=== PATIENT | male | born 1945 | race Caucasian/White ===

== ENCOUNTER 2020-06-08 07:09 | Inpatient (IN) ==
[2020-06-08] MEDS ORDERED: GLUCAGON 1 MG VIAL IM PRN ×2 (09:25)
[2020-06-08] MEDS ORDERED: DEXTROSE 50% 25 GM/50 ML VIAL IV PRN ×2 (09:25)
[2020-06-08 13:16] LABS: Basophils # 0.1 10*3/uL (0.0-0.2); Basophils % 0.5 % (0.0-0.8); Eosinophils # 0.5 10*3/uL (0.0-0.87); Eosinophils % 3.4 % (0.00-10.9); Hematocrit 26.6 VOL% (42.0-52.0); Immature Granulocytes % 1.2 %; Immature Granulocytes Absolute 0.18 #; Lymphocytes # 1.9 10*3/uL (1.4-4.0); Lymphocytes % 12.7 % (21.2-54.2); Mean Corpuscular HGB Conc 33.8 GM/DL (32-36); Mean Corpuscular Volume 87.5 FL (87-102); Mean Platelet Volume 10.5 FL (9.6-12.0); Monocytes % 8.7 % (1.7-12.7); NRBC # 0.05 10*3/uL; Neutrophils % 73.5 % (38.7-73.9); Platelet Count 216 T/CUMM (130-400); Red Blood Count 3.04 MC/CUMM (3.8-5.5); White Blood Count 14.6 T/CUMM (4-12)
[2020-06-08] MEDS ORDERED: SODIUM CHLORIDE 0.9% 1,000 ML IV PRN (13:24)
[2020-06-08 13:51] LABS: Albumin 2.3 G/DL (3.4-5.0); Bilirubin,Total 0.8 MG/DL (0.2-1.0); Calcium 7.6 MG/DL (8.5-10.1); Osmolality,Calculated 278.7 MOS/KG (273-304); Potassium 3.7 MMOL/L (3.5-5.1); Total Protein 4.9 G/DL (6.4-8.3)
[2020-06-08] MEDS: INSULIN REGULAR 100 UNIT/ML SUBCUT SCH ×3 (16:09→20:04)
[2020-06-08] MEDS: SODIUM CHLORIDE 0.9% 1,000 ML IV SCH (16:09)
[2020-06-08] MEDS: CHLORHEXIDINE 4% SOLN 118 ML BOTTLE TOP SCH ×2 (19:00→23:32)
[2020-06-08 20:29] LABS: Basophils # 0.1 10*3/uL (0.0-0.2); Basophils % 0.6 % (0.0-0.8); Eosinophils # 0.7 10*3/uL (0.0-0.87); Eosinophils % 5.2 % (0.00-10.9); Hematocrit 28.5 VOL% (42.0-52.0); Hemoglobin 9.5 GM/DL (14.0-18.0); Immature Granulocytes % 1.4 %; Lymphocytes # 2.1 10*3/uL (1.4-4.0); Lymphocytes % 14.9 % (21.2-54.2); Mean Corpuscular HGB Conc 33.3 GM/DL (32-36); Mean Corpuscular Volume 88.8 FL (87-102); Mean Platelet Volume 10.3 FL (9.6-12.0); Monocytes % 8.4 % (1.7-12.7); NRBC # 0.07 10*3/uL; Neutrophils % 69.5 % (38.7-73.9); Platelet Count 204 T/CUMM (130-400); Red Blood Count 3.21 MC/CUMM (3.8-5.5); Red Cell Distribution Width 14.8 % (9.3-17.3); White Blood Count 13.9 T/CUMM (4-12)
[2020-06-08] MEDS: CHLORHEXIDINE 0.12% ORAL RINSE 60 ML BOTTLE SWISH/SPIT SCH (20:43)
[2020-06-08] MEDS: CLORAZEPATE 7.5 MG TABLET PO SCH (20:43)
[2020-06-09] MEDS: CLORAZEPATE 7.5 MG TABLET PO SCH (01:12)
[2020-06-09] MEDS: CHLORHEXIDINE 4% SOLN 118 ML BOTTLE TOP SCH ×3 (03:38→09:19)
[2020-06-09 03:59] LABS: ABG Base Excess -2.2 MMOL/L (-2.5-2.5); ABG HCO3 22.5 MMOL/L (20-26); ABG Oxygen Saturation 98.6 % (95-100); ABG PCO2 33.8 MM HG (35-48); ABG PH 7.416 (7.35-7.45); ABG TCO2 19.7 MMOL/L (23-27); Allen Test Positive; Pt O2 Delivery Device Room Air
[2020-06-09] MEDS ORDERED: VANCOMYCIN 1,000 MG VIAL ONE (04:22)
[2020-06-09] MEDS ORDERED: PAPAVERINE 60 MG/2 ML VIAL ONE (04:22)
[2020-06-09] MEDS ORDERED: VANCOMYCIN 500 MG VIAL ONE (04:22)
[2020-06-09 04:25] LABS: Basophils # 0.1 10*3/uL (0.0-0.2); Basophils % 0.5 % (0.0-0.8); Eosinophils # 0.8 10*3/uL (0.0-0.87); Eosinophils % 5.8 % (0.00-10.9); Hematocrit 29.2 VOL% (42.0-52.0); Hemoglobin 9.9 GM/DL (14.0-18.0); Immature Granulocytes % 1.2 %; Immature Granulocytes Absolute 0.17 #; Lymphocytes # 2.1 10*3/uL (1.4-4.0); Lymphocytes % 14.7 % (21.2-54.2); Mean Corpuscular HGB Conc 33.9 GM/DL (32-36); Mean Corpuscular Volume 87.2 FL (87-102); Mean Platelet Volume 10.4 FL (9.6-12.0); Monocytes % 8.7 % (1.7-12.7); NRBC # 0.05 10*3/uL; Neutrophils % 69.1 % (38.7-73.9); Platelet Count 219 T/CUMM (130-400); Red Blood Count 3.35 MC/CUMM (3.8-5.5); Red Cell Distribution Width 14.7 % (9.3-17.3); White Blood Count 14.4 T/CUMM (4-12)
[2020-06-09 04:56] LABS: INR 1.1; PT Patient Result 11.4 SECS (9.8-11.9); Partial Thromboplastin Time 27.5 SECS (23.9-33.8)
[2020-06-09] MEDS ORDERED: CEFUROXIME INJ 1,500 MG in SYRINGE 1 EACH IV ONE (05:00)
[2020-06-09 05:12] LABS: Albumin 2.2 G/DL (3.4-5.0); Bilirubin,Total 0.7 MG/DL (0.2-1.0); Calcium 7.6 MG/DL (8.5-10.1); Osmolality,Calculated 274.7 MOS/KG (273-304); Potassium 3.8 MMOL/L (3.5-5.1); Total Protein 4.9 G/DL (6.4-8.3)
[2020-06-09] MEDS ORDERED: LORazepam 1 MG TABLET PO ONE (05:55)
[2020-06-09] MEDS ORDERED: MIDAZOLAM 10 MG/2 ML VIAL ONE ×3 (05:59→08:55)
[2020-06-09] MEDS ORDERED: SUFentanil 250 MCG/5 ML AMP ONE ×2 (06:00)
[2020-06-09] MEDS ORDERED: ETOMIDATE 40 MG/20 ML VIAL IV ONE (06:11)
[2020-06-09] MEDS ORDERED: CALCIUM CHLORIDE 1,000 MG/10 ML VIAL IV ONE ×2 (06:11→06:12)
[2020-06-09] MEDS ORDERED: VECURONIUM 10 MG VIAL IV ONE ×2 (06:12→08:55)
[2020-06-09] MEDS ORDERED: MINERAL OIL/PETROLATUM OPH OINT 3.5 GM TUBE ONE (06:12)
[2020-06-09] MEDS ORDERED: LIDOCAINE 2% 5 ML VIAL ONE ×2 (06:12→10:08)
[2020-06-09] MEDS ORDERED: LACTATED RINGERS 1,000 ML IV ONE (06:15)
[2020-06-09] MEDS ORDERED: SODIUM CHLORIDE 0.9% 1,000 ML IV ONE (06:15)
[2020-06-09] MEDS ORDERED: SODIUM CHLORIDE 0.9% 250 ML IV ONE (06:15)
[2020-06-09] MEDS ORDERED: PHENYLEPHRINE DRIP 20 MG/250 ML PREMIX IV ONE (06:15)
[2020-06-09] MEDS ORDERED: HEPARIN/NACL 0.9% 2 UNITS/ML 500 ML IV ONE (06:15)
[2020-06-09] MEDS ORDERED: SODIUM CHLORIDE 0.9% 100 ML IV ONE ×3 (06:15→10:18)
[2020-06-09] MEDS ORDERED: PANTOPRAZOLE 40 MG TABLET PO ONE (06:30)
[2020-06-09] MEDS ORDERED: DIAZEPAM 5 MG TABLET PO ONE (06:30)
[2020-06-09 07:35] LABS: ABG Base Excess -3.6 MMOL/L (-2.5-2.5); ABG HCO3 20.5 MMOL/L (20-26); ABG Oxygen Saturation 98.8 % (95-100); ABG PCO2 33.5 MM HG (35-48); ABG PH 7.405 (7.35-7.45); ABG PO2 421.6 MM HG (80-95); ABG TCO2 21.5 MMOL/L (23-27); Glucose Heart Surgery 90 MG/DL (74-106); Hemoglobin Heart Surgery 9.3 G/DL (14.0-18.0); Ionized Calcium Arterial 1.07 MMOL/L (1.21-1.46); PCO2 Patient Temp Arterial 33.5 MMHG; PH Patient Temp Arterial 7.405; PO2 Patient Temp Arterial 421.6 MM HG; Patient Temperature 37 CELCIUS; Potassium Heart/CVR 3.4 MMOL/L (3.5-5.1); Sodium Heart/CVR 132 MMOL/L (135-145)
[2020-06-09] MEDS ORDERED: SODIUM BICARBONATE 50 MEQ/50 ML VIAL IV ONE ×2 (07:56→10:09)
[2020-06-09] MEDS ORDERED: NITROPRUSSIDE 50 MG/2 ML VIAL ONE (07:56)
[2020-06-09] MEDS ORDERED: POTASSIUM CHLORIDE RIDER 100 ML IV ONE (07:56)
[2020-06-09] MEDS ORDERED: PHENYLEPHRINE DRIP 40 MG/250 ML PREMIX IV ONE (07:57)
[2020-06-09] MEDS ORDERED: CALCIUM CHLORIDE 1,000 MG/10 ML SYRINGE IV ONE (07:57)
[2020-06-09 08:02] LABS: Bacteria,Urine Occasional /HPF (Few); Bilirubin,Urine Negative (Negative); Blood, Urine Small mg/dL (Negative); Glucose,Urine (UA) Negative (Negative); Ketones,Urine 20 mg/dL (Negative); Mucus,Urine Occasional /LPF (Occasional); Nitrite,Urine Negative (Negative); Protein,Urine Negative; RBC,Urine 3 /HPF (0-4); Urine Appearance CLEAR (Clear); Urine Color Yellow (Yellow); Urine Urobilinogen < 2.0 EU/DL (0.2-1.0); WBC,Urine 1 /HPF (0-6)
[2020-06-09 09:03] LABS: Hematocrit Heart Surgery 24.8 PERCENT (42-52); Hemoglobin Heart Surgery 7.9 G/DL (14.0-18.0); PCO2 Patient Temp Venous 33.4 MM HG; PH Patient Temp Venous 7.405; PO2 Patient Temp Venous 37.9 MM HG; Potassium Heart/CVR 4.6 MMOL/L (3.5-5.1); VBG Base Excess -3.1 MEQ/L (0-4); VBG HCO3 21.6 MEQ/L (24-28); VBG Oxygen Saturation 83.3 %; VBG PCO2 38.7 MMHG (41-51); VBG PH 7.362; VBG PO2 46.6 MMHG (17-40); VBG Total CO2 20.6 MMOL/L
[2020-06-09] MEDS ORDERED: PHENYLEPHRINE 1 MG/10 ML SYRINGE IV ONE (09:08)
[2020-06-09] MEDS: CHLORHEXIDINE 0.12% ORAL RINSE 60 ML BOTTLE SWISH/SPIT SCH ×2 (09:19→20:26)
[2020-06-09] MEDS: INSULIN REGULAR 100 UNIT/ML SUBCUT SCH (09:19)
[2020-06-09] MEDS: SODIUM CHLORIDE 0.9% 1,000 ML IV SCH (09:21)
[2020-06-09 09:36] LABS: PCO2 Patient Temp Venous 27.9 MM HG; PH Patient Temp Venous 7.498; PO2 Patient Temp Venous 39.4 MM HG; Potassium Heart/CVR 3.9 MMOL/L (3.5-5.1); VBG Base Excess -1.7 MEQ/L (0-4); VBG HCO3 21.8 MEQ/L (24-28); VBG Oxygen Saturation 85.7 %; VBG PCO2 31.8 MMHG (41-51); VBG PH 7.453; VBG PO2 48.7 MMHG (17-40); VBG Total CO2 22.7 MMOL/L
[2020-06-09] MEDS ORDERED: DEXTROSE 5% KCL 20 MEQ 20 MEQ/1,000 ML BAG IV ONE (10:08)
[2020-06-09] MEDS ORDERED: methylPREDNISolone SOD SUC 1,000 MG/8 ML VIAL ONE (10:08)
[2020-06-09] MEDS ORDERED: MAGNESIUM SULFATE 5 GM/10 ML VIAL IV ONE (10:08)
[2020-06-09] MEDS ORDERED: ALBUMIN 25% 25 GM/100 ML VIAL IV ONE (10:08)
[2020-06-09] MEDS ORDERED: MANNITOL 100 GM/500 ML BAG IV ONE (10:09)
[2020-06-09] MEDS ORDERED: PROTAMINE SULFATE 50 MG/5 ML VIAL IV ONE (10:09)
[2020-06-09] MEDS ORDERED: FUROSEMIDE 20 MG/2 ML VIAL ONE (10:09)
[2020-06-09] MEDS ORDERED: HEPARIN 10,000 UNIT/10 ML VIAL ONE (10:09)
[2020-06-09] MEDS ORDERED: PROTAMINE SULFATE 250 MG/25 ML VIAL IV ONE (10:09)
[2020-06-09 10:31] LABS: ABG Base Excess -2.7 MMOL/L (-2.5-2.5); ABG HCO3 21.8 MMOL/L (20-26); ABG Oxygen Saturation 98.4 % (95-100); ABG PCO2 36.1 MM HG (35-48); ABG PH 7.398 (7.35-7.45); ABG PO2 311.3 MM HG (80-95); ABG TCO2 22.9 MMOL/L (23-27); Glucose Heart Surgery 198 MG/DL (74-106); Hemoglobin Heart Surgery 9.8 G/DL (14.0-18.0); Ionized Calcium Arterial 1.11 MMOL/L (1.21-1.46); PCO2 Patient Temp Arterial 36.1 MMHG; PH Patient Temp Arterial 7.398; PO2 Patient Temp Arterial 311.3 MM HG; Patient Temperature 37 CELCIUS; Potassium Heart/CVR 3.6 MMOL/L (3.5-5.1); Sodium Heart/CVR 132 MMOL/L (135-145)
[2020-06-09] MEDS ORDERED: INSULIN REGULAR 100 UNIT/ML IV ONE (10:48)
[2020-06-09] MEDS ORDERED: INSULIN REGULAR 100 UNIT/ML IV PRN (10:48)
[2020-06-09] MEDS ORDERED: VECURONIUM 10 MG VIAL IV PRN ×2 (10:48)
[2020-06-09] MEDS ORDERED: MIDAZOLAM 10 MG/2 ML VIAL IV PRN (10:48)
[2020-06-09] MEDS ORDERED: MAGNESIUM SULF RIDER 4 GM in PREMIX 1 EACH IV PRN (10:48)
[2020-06-09] MEDS ORDERED: LACTATED RINGERS 250 ML IV PRN (10:48)
[2020-06-09] MEDS ORDERED: MAGNESIUM SULF RIDER 2 GM in PREMIX 1 EACH IV PRN (10:48)
[2020-06-09] MEDS ORDERED: ONDANSETRON 4 MG/2 ML VIAL IV PRN (10:48)
[2020-06-09] MEDS ORDERED: MORPHINE 10 MG/1 ML VIAL IV PRN (10:48)
[2020-06-09] MEDS ORDERED: MIDAZOLAM 2 MG/2 ML VIAL IV PRN (10:48)
[2020-06-09] MEDS ORDERED: ACETAMINOPHEN 650 MG SUPP RECTAL PRN (10:48)
[2020-06-09] MEDS ORDERED: DEXTROSE 50% 25 GM/50 ML VIAL IV PRN ×2 (10:48)
[2020-06-09] MEDS ORDERED: CHLORHEXIDINE 4% SOLN 118 ML BOTTLE TOP PRN (10:48)
[2020-06-09] MEDS ORDERED: CALCIUM CHLORIDE 1,000 MG/10 ML SYRINGE IV PRN (10:48)
[2020-06-09] MEDS ORDERED: NITROPRUSSIDE 100 MG in DEXTROSE 5% 250 ML IV PRN (10:48)
[2020-06-09] MEDS ORDERED: MORPHINE 4 MG/1 ML VIAL IV PRN (10:48)
[2020-06-09] MEDS ORDERED: INSULIN REGULAR DRIP 100 ML IV SCH (11:00)
[2020-06-09] MEDS ORDERED: SEVOFLURANE 1 UNIT/15 MINUTE INH ONE (11:03)
[2020-06-09] MEDS ORDERED: GLYCOPYRROLATE 0.4 MG/2 ML VIAL ONE (11:03)
[2020-06-09 11:12] LABS: ABG Base Excess -0.8 MMOL/L (-2.5-2.5); ABG HCO3 23.7 MMOL/L (20-26); ABG Oxygen Saturation 99.2 % (95-100); ABG PCO2 36.8 MM HG (35-48); ABG PH 7.412 (7.35-7.45); ABG TCO2 21.2 MMOL/L (23-27); Glucose Heart Surgery 208 MG/DL (74-106); Hematocrit Heart Surgery 31.3 PERCENT (42-52); Hemoglobin Heart Surgery 10.1 G/DL (14.0-18.0); Potassium Heart/CVR 3.5 MMOL/L (3.5-5.1)
[2020-06-09 11:22] LABS: Basophils # 0.1 10*3/uL (0.0-0.2); Basophils % 0.4 % (0.0-0.8); Eosinophils # 0.4 10*3/uL (0.0-0.87); Eosinophils % 2.7 % (0.00-10.9); Hematocrit 28.9 VOL% (42.0-52.0); Hemoglobin 9.7 GM/DL (14.0-18.0); Immature Granulocytes % 1.7 %; Immature Granulocytes Absolute 0.26 #; Lymphocytes # 0.8 10*3/uL (1.4-4.0); Lymphocytes % 5.2 % (21.2-54.2); Mean Corpuscular HGB Conc 33.6 GM/DL (32-36); Mean Platelet Volume 10.3 FL (9.6-12.0); Monocytes % 4.4 % (1.7-12.7); NRBC # 0.08 10*3/uL; Neutrophils % 85.6 % (38.7-73.9); Platelet Count 233 T/CUMM (130-400); Red Blood Count 3.32 MC/CUMM (3.8-5.5); Red Cell Distribution Width 15.2 % (9.3-17.3)
[2020-06-09 11:29] LABS: INR 1.2; PT Patient Result 12.5 SECS (9.8-11.9); Partial Thromboplastin Time 26.8 SECS (23.9-33.8)
[2020-06-09] MEDS: SODIUM CHLORIDE 0.45% 1,000 ML IV SCH ×2 (11:38)
[2020-06-09] MEDS: POTASSIUM CHLORIDE RIDER 20 MEQ in PREMIX 1 EACH IV PRN ×4 (11:38→23:21)
[2020-06-09] MEDS: PHENYLEPHRINE DRIP 40 MG/250 ML PREMIX IV PRN (11:39)
[2020-06-09 11:45] LABS: CKMB % 11.5 %
[2020-06-09 11:48] LABS: Albumin 2.5 G/DL (3.4-5.0); Calcium 8.3 MG/DL (8.5-10.1); Osmolality,Calculated 283.5 MOS/KG (273-304); Potassium 3.5 MMOL/L (3.5-5.1); Total Protein 5.1 G/DL (6.4-8.3)
[2020-06-09 11:52] LABS: Troponin I 16.3 NG/ML (0.00-0.045)
[2020-06-09] MEDS: LACTATED RINGERS 1,000 ML IV PRN ×3 (12:00→13:50)
[2020-06-09] MEDS: POTASSIUM CHLORIDE RIDER 10 MEQ in PREMIX 1 EACH IV PRN ×3 (12:30→23:57)
[2020-06-09 13:07] LABS: ABG Base Excess 1.1 MMOL/L (-2.5-2.5); ABG HCO3 25.4 MMOL/L (20-26); ABG Oxygen Saturation 99.9 % (95-100); ABG PCO2 35.4 MM HG (35-48); ABG PH 7.452 (7.35-7.45); ABG TCO2 22.4 MMOL/L (23-27); Glucose Heart Surgery 155 MG/DL (74-106); Hematocrit Heart Surgery 31.2 PERCENT (42-52); Hemoglobin Heart Surgery 10.1 G/DL (14.0-18.0); Potassium Heart/CVR 3.6 MMOL/L (3.5-5.1)
[2020-06-09] MEDS: ALBUMIN 5% 12.5 GM in PREMIX 1 EACH IV PRN ×2 (13:25→14:34)
[2020-06-09 14:31] LABS: ABG Base Excess 1.3 MMOL/L (-2.5-2.5); ABG HCO3 25.6 MMOL/L (20-26); ABG Oxygen Saturation 99.4 % (95-100); ABG PH 7.459 (7.35-7.45); ABG TCO2 22.5 MMOL/L (23-27); Glucose Heart Surgery 126 MG/DL (74-106); Hematocrit Heart Surgery 30.3 PERCENT (42-52); Hemoglobin Heart Surgery 9.8 G/DL (14.0-18.0)
[2020-06-09 15:52] LABS: ABG Base Excess 0.6 MMOL/L (-2.5-2.5); ABG Oxygen Saturation 99.3 % (95-100); ABG PCO2 43.7 MM HG (35-48); ABG PH 7.381 (7.35-7.45); ABG TCO2 23.6 MMOL/L (23-27); Glucose Heart Surgery 114 MG/DL (74-106); Hematocrit Heart Surgery 31.3 PERCENT (42-52); Hemoglobin Heart Surgery 10.1 G/DL (14.0-18.0); Potassium Heart/CVR 4.2 MMOL/L (3.5-5.1)
[2020-06-09] MEDS: CEFUROXIME INJ 1,500 MG in SYRINGE 1 EACH IV SCH (18:09)
[2020-06-09 18:40] LABS: ABG Base Excess -0.1 MMOL/L (-2.5-2.5); ABG HCO3 24.4 MMOL/L (20-26); ABG Oxygen Saturation 99.3 % (95-100); ABG PCO2 45.1 MM HG (35-48); ABG PH 7.361 (7.35-7.45); ABG TCO2 23.3 MMOL/L (23-27); Glucose Heart Surgery 122 MG/DL (74-106); Hematocrit Heart Surgery 30.7 PERCENT (42-52); Hemoglobin Heart Surgery 9.9 G/DL (14.0-18.0); Potassium Heart/CVR 4.4 MMOL/L (3.5-5.1)
[2020-06-09 19:16] LABS: Troponin I 13.1 NG/ML (0.00-0.045)
[2020-06-09] MEDS ORDERED: FUROSEMIDE 40 MG/4 ML VIAL IV PRN (20:27)
[2020-06-09 21:03] LABS: ABG HCO3 23.6 MMOL/L (20-26); ABG Oxygen Saturation 99.7 % (95-100); ABG PCO2 29.5 MM HG (35-48); ABG PH 7.475 (7.35-7.45); ABG TCO2 19.7 MMOL/L (23-27); Glucose Heart Surgery 142 MG/DL (74-106); Hematocrit Heart Surgery 31.1 PERCENT (42-52); Hemoglobin Heart Surgery 10.1 G/DL (14.0-18.0); Potassium Heart/CVR 4.1 MMOL/L (3.5-5.1)
[2020-06-09 22:20] LABS: ABG Base Excess -0.4 MMOL/L (-2.5-2.5); ABG HCO3 24.1 MMOL/L (20-26); ABG Oxygen Saturation 99.6 % (95-100); ABG PCO2 25.2 MM HG (35-48); ABG PH 7.534 (7.35-7.45); ABG TCO2 19.2 MMOL/L (23-27); Glucose Heart Surgery 143 MG/DL (74-106); Hematocrit Heart Surgery 30.8 PERCENT (42-52); Potassium Heart/CVR 4.1 MMOL/L (3.5-5.1)
[2020-06-09 23:11] LABS: ABG Base Excess -1.6 MMOL/L (-2.5-2.5); ABG HCO3 23.1 MMOL/L (20-26); ABG Oxygen Saturation 99.5 % (95-100); ABG PCO2 22.1 MM HG (35-48); ABG PH 7.553 (7.35-7.45); ABG TCO2 17.6 MMOL/L (23-27); Glucose Heart Surgery 145 MG/DL (74-106); Hematocrit Heart Surgery 30.7 PERCENT (42-52); Hemoglobin Heart Surgery 9.9 G/DL (14.0-18.0); Potassium Heart/CVR 3.8 MMOL/L (3.5-5.1)
[2020-06-10 00:54] LABS: ABG Base Excess -1.5 MMOL/L (-2.5-2.5); ABG HCO3 23.2 MMOL/L (20-26); ABG Oxygen Saturation 99.8 % (95-100); ABG PCO2 27.7 MM HG (35-48); ABG PH 7.488 (7.35-7.45); Glucose Heart Surgery 131 MG/DL (74-106); Hematocrit Heart Surgery 30.3 PERCENT (42-52); Hemoglobin Heart Surgery 9.8 G/DL (14.0-18.0); Potassium Heart/CVR 4.4 MMOL/L (3.5-5.1)
[2020-06-10 02:13] LABS: ABG Base Excess -1.9 MMOL/L (-2.5-2.5); ABG HCO3 22.8 MMOL/L (20-26); ABG Oxygen Saturation 99.7 % (95-100); ABG PCO2 33.6 MM HG (35-48); ABG PH 7.422 (7.35-7.45); ABG TCO2 19.7 MMOL/L (23-27); Glucose Heart Surgery 127 MG/DL (74-106); Hematocrit Heart Surgery 33.2 PERCENT (42-52); Hemoglobin Heart Surgery 10.7 G/DL (14.0-18.0); Potassium Heart/CVR 4.3 MMOL/L (3.5-5.1)
[2020-06-10] MEDS: POTASSIUM CHLORIDE RIDER 20 MEQ in PREMIX 1 EACH IV PRN (02:29)
[2020-06-10 03:37] LABS: ABG Base Excess -1.8 MMOL/L (-2.5-2.5); ABG HCO3 22.9 MMOL/L (20-26); ABG Oxygen Saturation 98.8 % (95-100); ABG PCO2 35.8 MM HG (35-48); ABG PH 7.405 (7.35-7.45); ABG TCO2 20.3 MMOL/L (23-27); Glucose Heart Surgery 126 MG/DL (74-106); Hematocrit Heart Surgery 32.8 PERCENT (42-52); Hemoglobin Heart Surgery 10.6 G/DL (14.0-18.0); Potassium Heart/CVR 4.3 MMOL/L (3.5-5.1)
[2020-06-10 03:39] LABS: Basophils % 0.1 % (0.0-0.8); Hemoglobin 10.4 GM/DL (14.0-18.0); Immature Granulocytes % 0.7 %; Immature Granulocytes Absolute 0.14 #; Lymphocytes # 0.7 10*3/uL (1.4-4.0); Lymphocytes % 3.2 % (21.2-54.2); Mean Corpuscular HGB Conc 33.5 GM/DL (32-36); Mean Corpuscular Volume 87.8 FL (87-102); Mean Platelet Volume 10.5 FL (9.6-12.0); Monocytes % 4.3 % (1.7-12.7); NRBC # 0.03 10*3/uL; Neutrophils % 91.7 % (38.7-73.9); Platelet Count 336 T/CUMM (130-400); Red Blood Count 3.53 MC/CUMM (3.8-5.5); Red Cell Distribution Width 16.3 % (9.3-17.3); White Blood Count 20.3 T/CUMM (4-12)
[2020-06-10 04:04] LABS: Bilirubin,Direct 0.19 MG/DL (0.0-0.20); Bilirubin,Total 0.6 MG/DL (0.2-1.0); CKMB % 7.7 %; Calcium 8.1 MG/DL (8.5-10.1); Osmolality,Calculated 285.1 MOS/KG (273-304); Potassium 4.5 MMOL/L (3.5-5.1); Total Protein 5.3 G/DL (6.4-8.3)
[2020-06-10 04:09] LABS: Troponin I 9.82 NG/ML (0.00-0.045)
[2020-06-10] MEDS: POTASSIUM CHLORIDE RIDER 10 MEQ in PREMIX 1 EACH IV PRN (04:28)
[2020-06-10] MEDS: CEFUROXIME INJ 1,500 MG in SYRINGE 1 EACH IV SCH ×2 (06:20→18:00)
[2020-06-10 08:21] LABS: Anisocytosis 1+; Band Neutrophils 15 % (0-10); Lymphocytes 3 % (20-55); Platelet Estimate Normal; Segmented Neutrophils 73 % (50-85); Total Cells Counted 100
[2020-06-10 08:22] LABS: Polychromasia Slight
[2020-06-10] MEDS ORDERED: AMIODARONE INJ 150 MG in DEXTROSE 5% 100 ML IV ONE (08:56)
[2020-06-10] MEDS ORDERED: AMIODARONE 150 MG/3 ML VIAL ONE (08:58)
[2020-06-10] MEDS ORDERED: AMIODARONE INJ 450 MG in DEXTROSE 5% 241 ML IV SCH ×2 (09:00→15:00)
[2020-06-10] MEDS ORDERED: AMIODARONE 450 MG/9 ML VIAL IV ONE (09:03)
[2020-06-10] MEDS: CHLORHEXIDINE 0.12% ORAL RINSE 60 ML BOTTLE SWISH/SPIT SCH ×2 (09:23→21:23)
[2020-06-10] MEDS ORDERED: TRIAMCINOLONE 0.1% CREAM 15 GM TUBE TOP SCH (09:30)
[2020-06-10] MEDS: KETOROLAC 30 MG/1 ML VIAL IV SCH ×3 (09:33→20:53)
[2020-06-10] MEDS: metroNIDAZOLE 500 MG/100 ML PREMIX IV SCH ×2 (09:50→21:04)
[2020-06-10] MEDS: PHENYLEPHRINE DRIP 40 MG/250 ML PREMIX IV PRN (10:08)
[2020-06-10] MEDS: ALBUMIN 5% 12.5 GM in PREMIX 1 EACH IV PRN ×2 (10:13→10:48)
[2020-06-10] MEDS: SODIUM CHLORIDE 0.45% 1,000 ML IV SCH ×2 (11:19→11:39)
[2020-06-10] MEDS ORDERED: INSULIN LISPRO 100 UNIT/ML SUBCUT SCH (11:30)
[2020-06-10] MEDS: INSULIN REGULAR 100 UNIT/ML SUBCUT SCH ×3 (11:52→20:53)
[2020-06-10 12:36] LABS: CKMB % 6.4 %
[2020-06-10 12:41] LABS: Troponin I 6.97 NG/ML (0.00-0.045)
[2020-06-10] MEDS: METOPROLOL TARTRATE 25 MG TABLET PO SCH (20:01)
[2020-06-10] MEDS: ATORVASTATIN 80 MG TABLET PO SCH (20:52)
[2020-06-10] MEDS: metFORMIN 500 MG TABLET PO SCH (20:52)
[2020-06-11] MEDS: KETOROLAC 30 MG/1 ML VIAL IV SCH ×4 (02:04→21:11)
[2020-06-11] MEDS: PHENYLEPHRINE DRIP 40 MG/250 ML PREMIX IV PRN ×3 (02:08→22:38)
[2020-06-11 04:08] LABS: Basophils % 0.1 % (0.0-0.8); Hematocrit 25.3 VOL% (42.0-52.0); Hemoglobin 8.2 GM/DL (14.0-18.0); Immature Granulocytes % 0.9 %; Immature Granulocytes Absolute 0.23 #; Lymphocytes % 4.1 % (21.2-54.2); Mean Corpuscular HGB Conc 32.4 GM/DL (32-36); Mean Corpuscular Volume 91.7 FL (87-102); Mean Platelet Volume 10.4 FL (9.6-12.0); Monocytes % 7.4 % (1.7-12.7); NRBC # 0.05 10*3/uL; Neutrophils % 87.5 % (38.7-73.9); Platelet Count 352 T/CUMM (130-400); Red Blood Count 2.76 MC/CUMM (3.8-5.5); White Blood Count 24.4 T/CUMM (4-12)
[2020-06-11 04:39] LABS: Alanine Aminotransferase 21 U/L (16-61); Albumin 2.4 G/DL (3.4-5.0); Alkaline Phosphatase 51 U/L (45-117); Aspartate Amino Transferase 15 U/L (0-37); Bilirubin,Total < 0.39 MG/DL (0.2-1.0); Blood Urea Nitrogen 39 MG/DL (7-18); Calcium 7.3 MG/DL (8.5-10.1); Carbon Dioxide 26 MMOL/L (21-32); Estimated Glom Filtration Rate 100 ML/MIN; Glucose 123 MG/DL (74-106); Osmolality,Calculated 292.1 MOS/KG (273-304); Potassium 4.2 MMOL/L (3.5-5.1); Sodium 142 MMOL/L (136-145); Total Protein 4.8 G/DL (6.4-8.3)
[2020-06-11] MEDS: POTASSIUM CHLORIDE RIDER 20 MEQ in PREMIX 1 EACH IV PRN (05:40)
[2020-06-11] MEDS: ALBUMIN 5% 12.5 GM in PREMIX 1 EACH IV PRN ×2 (05:41→06:07)
[2020-06-11 07:35] LABS: Lymphocytes 2 % (20-55); Segmented Neutrophils 93 % (50-85); Total Cells Counted 100
[2020-06-11 07:36] LABS: Anisocytosis 1+; Microcytosis 1+; Platelet Estimate Increased; Polychromasia Few
[2020-06-11] MEDS ORDERED: MAGNESIUM SULF RIDER 4 GM in PREMIX 1 EACH IV PRN (08:30)
[2020-06-11] MEDS ORDERED: DEXTROSE 50% 25 GM/50 ML VIAL IV PRN ×2 (08:30)
[2020-06-11] MEDS ORDERED: ALUMINUM/MAGNES/SIMETH MAX STR 30 ML UDCUP PO PRN (08:30)
[2020-06-11] MEDS ORDERED: MAGNESIUM SULF RIDER 2 GM in PREMIX 1 EACH IV PRN (08:30)
[2020-06-11] MEDS ORDERED: ACETAMINOPHEN 325 MG TABLET PO PRN (08:30)
[2020-06-11] MEDS ORDERED: MAGNESIUM HYDROXIDE SUSP 30 ML UDCUP PO PRN (08:30)
[2020-06-11] MEDS ORDERED: FUROSEMIDE 40 MG/4 ML VIAL IV ONE (08:30)
[2020-06-11] MEDS ORDERED: GLUCAGON 1 MG VIAL IM PRN ×2 (08:30)
[2020-06-11] MEDS ORDERED: ONDANSETRON 4 MG/2 ML VIAL IV PRN (08:30)
[2020-06-11] MEDS: INSULIN REGULAR 100 UNIT/ML SUBCUT SCH ×4 (08:49→21:41)
[2020-06-11] MEDS ORDERED: ALBUMIN 5% 25 GM in PREMIX 1 EACH IV ONE (08:53)
[2020-06-11] MEDS: CHLORHEXIDINE 0.12% ORAL RINSE 60 ML BOTTLE SWISH/SPIT SCH ×2 (09:25→21:31)
[2020-06-11] MEDS: FERROUS SULFATE 325 MG TABLET PO SCH (09:26)
[2020-06-11] MEDS: ASPIRIN EC 81 MG TABLET PO SCH (09:26)
[2020-06-11] MEDS: PANTOPRAZOLE 40 MG TABLET PO SCH (09:26)
[2020-06-11] MEDS: metroNIDAZOLE 500 MG/100 ML PREMIX IV SCH ×2 (09:26→21:42)
[2020-06-11] MEDS: METOPROLOL TARTRATE 25 MG TABLET PO SCH ×3 (09:26→21:43)
[2020-06-11] MEDS: DOCUSATE SODIUM 100 MG CAPSULE PO SCH (09:26)
[2020-06-11] MEDS: SODIUM CHLOR 0.45% KCL 20 MEQ 20 MEQ/1,000 ML BAG IV SCH (09:27)
[2020-06-11] MEDS: metFORMIN 500 MG TABLET PO SCH ×2 (09:27→21:43)
[2020-06-11] MEDS: ZALEPLON 5 MG CAPSULE PO PRN ×2 (21:26→22:51)
[2020-06-11] MEDS: ATORVASTATIN 80 MG TABLET PO SCH (21:27)
[2020-06-11] MEDS: oxyCODONE/ACETAMINOPHEN 5-325 MG TABLET PO PRN (22:55)
[2020-06-12] MEDS: MORPHINE 4 MG/1 ML VIAL IV PRN (02:52)
[2020-06-12] MEDS: PHENYLEPHRINE DRIP 40 MG/250 ML PREMIX IV PRN ×4 (03:58→21:50)
[2020-06-12 05:40] LABS: Basophils % 0.1 % (0.0-0.8); Eosinophils # 0.5 10*3/uL (0.0-0.87); Eosinophils % 2.8 % (0.00-10.9); Hemoglobin 6.9 GM/DL (14.0-18.0); Immature Granulocytes % 0.7 %; Immature Granulocytes Absolute 0.13 #; Lymphocytes # 3.2 10*3/uL (1.4-4.0); Mean Corpuscular HGB Conc 31.4 GM/DL (32-36); Mean Corpuscular Volume 93.6 FL (87-102); Mean Platelet Volume 10.6 FL (9.6-12.0); Monocytes % 8.1 % (1.7-12.7); NRBC # 0.06 10*3/uL; Neutrophils % 70.3 % (38.7-73.9); Platelet Count 395 T/CUMM (130-400); Red Blood Count 2.35 MC/CUMM (3.8-5.5); White Blood Count 17.6 T/CUMM (4-12)
[2020-06-12] MEDS: KETOROLAC 30 MG/1 ML VIAL IV SCH ×4 (05:41→21:49)
[2020-06-12 06:01] LABS: Alanine Aminotransferase 20 U/L (16-61); Albumin 2.7 G/DL (3.4-5.0); Alkaline Phosphatase 45 U/L (45-117); Aspartate Amino Transferase 16 U/L (0-37); Bilirubin,Direct < 0.100 MG/DL (0.0-0.20); Bilirubin,Total < 0.39 MG/DL (0.2-1.0); Blood Urea Nitrogen 44 MG/DL (7-18); Calcium 7.5 MG/DL (8.5-10.1); Carbon Dioxide 25 MMOL/L (21-32); Estimated Glom Filtration Rate 100 ML/MIN; Glucose 97 MG/DL (74-106); Osmolality,Calculated 291.3 MOS/KG (273-304); Potassium 4.2 MMOL/L (3.5-5.1); Sodium 141 MMOL/L (136-145); Total Protein 4.9 G/DL (6.4-8.3)
[2020-06-12 06:07] LABS: Bilirubin,Indirect 0.3 MG/DL (0.0-1.0)
[2020-06-12] MEDS ORDERED: FUROSEMIDE 40 MG/4 ML VIAL IV ONE (06:57)
[2020-06-12] MEDS: INSULIN REGULAR 100 UNIT/ML SUBCUT SCH ×4 (07:43→21:48)
[2020-06-12] MEDS: SODIUM CHLOR 0.45% KCL 20 MEQ 20 MEQ/1,000 ML BAG IV SCH (08:09)
[2020-06-12] MEDS: ASPIRIN EC 81 MG TABLET PO SCH (09:24)
[2020-06-12] MEDS: DOCUSATE SODIUM 100 MG CAPSULE PO SCH (09:25)
[2020-06-12] MEDS: metFORMIN 500 MG TABLET PO SCH ×2 (09:26→21:48)
[2020-06-12] MEDS: FERROUS SULFATE 325 MG TABLET PO SCH (09:28)
[2020-06-12] MEDS: metroNIDAZOLE 500 MG/100 ML PREMIX IV SCH ×2 (09:28→22:20)
[2020-06-12] MEDS: CHLORHEXIDINE 0.12% ORAL RINSE 60 ML BOTTLE SWISH/SPIT SCH ×2 (09:29→22:35)
[2020-06-12] MEDS: PANTOPRAZOLE 40 MG TABLET PO SCH (09:41)
[2020-06-12] MEDS: METOPROLOL TARTRATE 25 MG TABLET PO SCH (09:41)
[2020-06-12] MEDS: PANTOPRAZOLE 40 MG VIAL IV SCH ×2 (09:43→21:48)
[2020-06-12] MEDS ORDERED: LOPERAMIDE 2 MG CAPSULE PO ONE (12:51)
[2020-06-12] MEDS ORDERED: LOPERAMIDE 2 MG CAPSULE PO PRN (12:53)
[2020-06-12] MEDS: oxyCODONE/ACETAMINOPHEN 5-325 MG TABLET PO PRN (13:20)
[2020-06-12 15:21] LABS: Hematocrit 31.4 VOL% (42.0-52.0); Hemoglobin 10.2 GM/DL (14.0-18.0)
[2020-06-12 16:34] LABS: Bacteria,Urine Occasional /HPF (Few); Bilirubin,Urine Negative (Negative); Blood, Urine Small mg/dL (Negative); Glucose,Urine (UA) Negative (Negative); Hyaline Casts,Urine 15 /LPF (0-3); Ketones,Urine Negative (Negative); Mucus,Urine Occasional /LPF (Occasional); Nitrite,Urine Negative (Negative); Protein,Urine Negative; RBC,Urine 1 /HPF (0-4); Urine Appearance CLEAR (Clear); Urine Color Straw (Yellow); Urine Urobilinogen < 2.0 EU/DL (0.2-1.0); WBC,Urine 1 /HPF (0-6)
[2020-06-12] MEDS: PHENAZOPYRIDINE 95 MG TABLET PO SCH (17:36)
[2020-06-12] MEDS: ATORVASTATIN 80 MG TABLET PO SCH (21:48)
[2020-06-13] MEDS: KETOROLAC 30 MG/1 ML VIAL IV SCH ×4 (02:45→20:54)
[2020-06-13] MEDS: PHENYLEPHRINE DRIP 40 MG/250 ML PREMIX IV PRN ×2 (03:45→16:14)
[2020-06-13 04:50] LABS: Basophils # 0.1 10*3/uL (0.0-0.2); Basophils % 0.3 % (0.0-0.8); Eosinophils # 1.1 10*3/uL (0.0-0.87); Eosinophils % 7.3 % (0.00-10.9); Hematocrit 26.7 VOL% (42.0-52.0); Hemoglobin 8.9 GM/DL (14.0-18.0); Immature Granulocytes Absolute 0.15 #; Lymphocytes # 2.4 10*3/uL (1.4-4.0); Lymphocytes % 16.5 % (21.2-54.2); Mean Corpuscular HGB Conc 33.3 GM/DL (32-36); Mean Corpuscular Volume 91.4 FL (87-102); Monocytes % 7.9 % (1.7-12.7); NRBC # 0.05 10*3/uL; Platelet Count 342 T/CUMM (130-400); Red Blood Count 2.92 MC/CUMM (3.8-5.5); Red Cell Distribution Width 15.4 % (9.3-17.3); White Blood Count 14.6 T/CUMM (4-12)
[2020-06-13 04:56] LABS: Alanine Aminotransferase 21 U/L (16-61); Albumin 2.3 G/DL (3.4-5.0); Alkaline Phosphatase 48 U/L (45-117); Aspartate Amino Transferase 16 U/L (0-37); Bilirubin,Indirect 0.2 MG/DL (0.0-1.0); Blood Urea Nitrogen 25 MG/DL (7-18); Calcium 7.6 MG/DL (8.5-10.1); Carbon Dioxide 26 MMOL/L (21-32); Estimated Glom Filtration Rate 105 ML/MIN; Glucose 93 MG/DL (74-106); Osmolality,Calculated 286.1 MOS/KG (273-304); Potassium 3.7 MMOL/L (3.5-5.1); Sodium 142 MMOL/L (136-145); Total Protein 4.8 G/DL (6.4-8.3)
[2020-06-13] MEDS: POTASSIUM CHLORIDE 20 MEQ TABLET PO PRN ×2 (05:42→07:28)
[2020-06-13] MEDS: INSULIN REGULAR 100 UNIT/ML SUBCUT SCH ×4 (08:05→21:32)
[2020-06-13] MEDS: PHENAZOPYRIDINE 95 MG TABLET PO SCH ×3 (08:14→17:40)
[2020-06-13] MEDS: FERROUS SULFATE 325 MG TABLET PO SCH (09:09)
[2020-06-13] MEDS: ASPIRIN EC 81 MG TABLET PO SCH (09:09)
[2020-06-13] MEDS: metFORMIN 500 MG TABLET PO SCH ×2 (09:09→20:53)
[2020-06-13] MEDS: metroNIDAZOLE 500 MG/100 ML PREMIX IV SCH ×2 (09:10→20:54)
[2020-06-13] MEDS: CHLORHEXIDINE 0.12% ORAL RINSE 60 ML BOTTLE SWISH/SPIT SCH ×2 (09:10→21:32)
[2020-06-13] MEDS: DOCUSATE SODIUM 100 MG CAPSULE PO SCH (09:10)
[2020-06-13] MEDS: PANTOPRAZOLE 40 MG VIAL IV SCH ×2 (09:11→20:54)
[2020-06-13] MEDS ORDERED: ALBUMIN 5% 12.5 GM in PREMIX 1 EACH IV ONE (11:17)
[2020-06-13] MEDS: oxyCODONE/ACETAMINOPHEN 5-325 MG TABLET PO PRN (17:42)
[2020-06-13] MEDS: ATORVASTATIN 80 MG TABLET PO SCH (20:53)
[2020-06-14] MEDS: KETOROLAC 30 MG/1 ML VIAL IV SCH ×4 (03:50→20:59)
[2020-06-14 05:24] LABS: Basophils # 0.1 10*3/uL (0.0-0.2); Basophils % 0.5 % (0.0-0.8); Eosinophils # 1.3 10*3/uL (0.0-0.87); Hematocrit 26.8 VOL% (42.0-52.0); Hemoglobin 8.4 GM/DL (14.0-18.0); Immature Granulocytes % 1.2 %; Immature Granulocytes Absolute 0.16 #; Lymphocytes # 2.4 10*3/uL (1.4-4.0); Mean Corpuscular HGB Conc 31.3 GM/DL (32-36); Mean Corpuscular Volume 95.4 FL (87-102); Mean Platelet Volume 9.6 FL (9.6-12.0); Monocytes % 8.2 % (1.7-12.7); NRBC # 0.02 10*3/uL; Neutrophils % 62.1 % (38.7-73.9); Platelet Count 378 T/CUMM (130-400); Red Blood Count 2.81 MC/CUMM (3.8-5.5); Red Cell Distribution Width 15.6 % (9.3-17.3); White Blood Count 13.2 T/CUMM (4-12)
[2020-06-14 05:34] LABS: Alanine Aminotransferase 24 U/L (16-61); Albumin 2.2 G/DL (3.4-5.0); Alkaline Phosphatase 49 U/L (45-117); Aspartate Amino Transferase 21 U/L (0-37); Bilirubin,Indirect 0.3 MG/DL (0.0-1.0); Blood Urea Nitrogen 26 MG/DL (7-18); Calcium 7.9 MG/DL (8.5-10.1); Carbon Dioxide 26 MMOL/L (21-32); Estimated Glom Filtration Rate 112 ML/MIN; Glucose 102 MG/DL (74-106); Osmolality,Calculated 281.5 MOS/KG (273-304); Potassium 4.1 MMOL/L (3.5-5.1); Sodium 139 MMOL/L (136-145); Total Protein 4.7 G/DL (6.4-8.3)
[2020-06-14] MEDS: INSULIN REGULAR 100 UNIT/ML SUBCUT SCH ×4 (08:10→20:05)
[2020-06-14] MEDS ORDERED: ALBUMIN 5% 25 GM in PREMIX 1 EACH IV ONE (08:30)
[2020-06-14] MEDS: FERROUS SULFATE 325 MG TABLET PO SCH (08:40)
[2020-06-14] MEDS: metFORMIN 500 MG TABLET PO SCH ×2 (08:40→20:58)
[2020-06-14] MEDS: ASPIRIN EC 81 MG TABLET PO SCH (08:40)
[2020-06-14] MEDS: DOCUSATE SODIUM 100 MG CAPSULE PO SCH (08:40)
[2020-06-14] MEDS: PHENAZOPYRIDINE 95 MG TABLET PO SCH ×3 (08:40→17:47)
[2020-06-14] MEDS: PANTOPRAZOLE 40 MG VIAL IV SCH ×2 (08:41→21:03)
[2020-06-14] MEDS: metroNIDAZOLE 500 MG/100 ML PREMIX IV SCH ×2 (08:45→21:06)
[2020-06-14] MEDS: CHLORHEXIDINE 0.12% ORAL RINSE 60 ML BOTTLE SWISH/SPIT SCH ×2 (08:46→21:05)
[2020-06-14] MEDS: ATORVASTATIN 80 MG TABLET PO SCH (20:57)
[2020-06-14] MEDS: ZALEPLON 5 MG CAPSULE PO PRN (20:57)
[2020-06-14] MEDS: oxyCODONE/ACETAMINOPHEN 5-325 MG TABLET PO PRN (20:58)
[2020-06-14] MEDS: MORPHINE 4 MG/1 ML VIAL IV PRN (22:14)
[2020-06-14] MEDS ORDERED: ACETAMINOPHEN 325 MG TABLET PO PRN (23:31)
[2020-06-14] MEDS ORDERED: SODIUM CHLOR 0.45% KCL 20 MEQ 20 MEQ/1,000 ML BAG IV SCH (23:31)
[2020-06-14] MEDS ORDERED: ALUMINUM/MAGNES/SIMETH MAX STR 30 ML UDCUP PO PRN (23:31)
[2020-06-14] MEDS ORDERED: ONDANSETRON 4 MG/2 ML VIAL IV PRN (23:31)
[2020-06-14] MEDS ORDERED: MAGNESIUM SULF RIDER 2 GM in PREMIX 1 EACH IV PRN (23:31)
[2020-06-14] MEDS ORDERED: DEXTROSE 50% 25 GM/50 ML VIAL IV PRN (23:31)
[2020-06-14] MEDS ORDERED: POTASSIUM CHLORIDE 20 MEQ TABLET PO PRN (23:31)
[2020-06-14] MEDS ORDERED: GLUCAGON 1 MG VIAL IM PRN (23:31)
[2020-06-14] MEDS ORDERED: MAGNESIUM HYDROXIDE SUSP 30 ML UDCUP PO PRN (23:31)
[2020-06-14] MEDS ORDERED: MAGNESIUM SULF RIDER 4 GM in PREMIX 1 EACH IV PRN (23:31)
[2020-06-15] MEDS: KETOROLAC 30 MG/1 ML VIAL IV SCH (03:11)
[2020-06-15 05:31] LABS: Basophils % 0.3 % (0.0-0.8); Eosinophils # 1.1 10*3/uL (0.0-0.87); Hematocrit 27.2 VOL% (42.0-52.0); Hemoglobin 8.5 GM/DL (14.0-18.0); Immature Granulocytes % 0.7 %; Immature Granulocytes Absolute 0.08 #; Lymphocytes # 2.1 10*3/uL (1.4-4.0); Lymphocytes % 17.3 % (21.2-54.2); Mean Corpuscular HGB Conc 31.3 GM/DL (32-36); Mean Corpuscular Volume 97.5 FL (87-102); Mean Platelet Volume 9.3 FL (9.6-12.0); Monocytes % 7.5 % (1.7-12.7); NRBC # 0.02 10*3/uL; Neutrophils % 65.2 % (38.7-73.9); Platelet Count 360 T/CUMM (130-400); Red Blood Count 2.79 MC/CUMM (3.8-5.5); Red Cell Distribution Width 16.1 % (9.3-17.3); White Blood Count 11.8 T/CUMM (4-12)
[2020-06-15 05:57] LABS: Alanine Aminotransferase 20 U/L (16-61); Albumin 2.4 G/DL (3.4-5.0); Alkaline Phosphatase 45 U/L (45-117); Aspartate Amino Transferase 18 U/L (0-37); Bilirubin,Indirect 0.5 MG/DL (0.0-1.0); Blood Urea Nitrogen 17 MG/DL (7-18); Carbon Dioxide 26 MMOL/L (21-32); Estimated Glom Filtration Rate 112 ML/MIN; Glucose 82 MG/DL (74-106); Potassium 4.2 MMOL/L (3.5-5.1); Sodium 143 MMOL/L (136-145); Total Protein 4.8 G/DL (6.4-8.3)
[2020-06-15] MEDS ORDERED: FUROSEMIDE 40 MG/4 ML VIAL IV ONE (06:00)
[2020-06-15] MEDS: FERROUS SULFATE 325 MG TABLET PO SCH (08:05)
[2020-06-15] MEDS: PANTOPRAZOLE 40 MG TABLET PO SCH (08:05)
[2020-06-15] MEDS: ASPIRIN EC 81 MG TABLET PO SCH (08:05)
[2020-06-15] MEDS: PHENAZOPYRIDINE 95 MG TABLET PO SCH ×3 (08:05→17:47)
[2020-06-15] MEDS: DOCUSATE SODIUM 100 MG CAPSULE PO SCH (08:05)
[2020-06-15] MEDS: metFORMIN 500 MG TABLET PO SCH ×2 (08:05→21:40)
[2020-06-15] MEDS: INSULIN REGULAR 100 UNIT/ML SUBCUT SCH (08:06)
[2020-06-15] MEDS: metroNIDAZOLE 500 MG/100 ML PREMIX IV SCH (08:52)
[2020-06-15] MEDS: metroNIDAZOLE INJ 500 MG in PREMIX 1 EACH IV SCH ×2 (09:00→21:40)
[2020-06-15] MEDS: ATORVASTATIN 80 MG TABLET PO SCH (21:40)
[2020-06-15] MEDS: oxyCODONE/ACETAMINOPHEN 5-325 MG TABLET PO PRN (21:40)
[2020-06-16 06:42] LABS: Basophils % 0.2 % (0.0-0.8); Eosinophils # 0.7 10*3/uL (0.0-0.87); Hematocrit 27.5 VOL% (42.0-52.0); Hemoglobin 8.7 GM/DL (14.0-18.0); Immature Granulocytes % 0.6 %; Immature Granulocytes Absolute 0.07 #; Lymphocytes # 1.4 10*3/uL (1.4-4.0); Lymphocytes % 11.8 % (21.2-54.2); Mean Corpuscular HGB Conc 31.6 GM/DL (32-36); Mean Corpuscular Volume 94.5 FL (87-102); Mean Platelet Volume 9.6 FL (9.6-12.0); Monocytes % 8.2 % (1.7-12.7); Neutrophils % 73.2 % (38.7-73.9); Platelet Count 420 T/CUMM (130-400); Red Blood Count 2.91 MC/CUMM (3.8-5.5); Red Cell Distribution Width 16.2 % (9.3-17.3); White Blood Count 12.2 T/CUMM (4-12)
[2020-06-16 07:02] LABS: Alanine Aminotransferase 20 U/L (16-61); Albumin 2.3 G/DL (3.4-5.0); Alkaline Phosphatase 50 U/L (45-117); Aspartate Amino Transferase 14 U/L (0-37); Bilirubin,Direct < 0.100 MG/DL (0.0-0.20); Bilirubin,Indirect 0.4 MG/DL (0.0-1.0); Blood Urea Nitrogen 16 MG/DL (7-18); Calcium 8.4 MG/DL (8.5-10.1); Carbon Dioxide 29 MMOL/L (21-32); Estimated Glom Filtration Rate 108 ML/MIN; Glucose 88 MG/DL (74-106); Osmolality,Calculated 282.1 MOS/KG (273-304); Sodium 142 MMOL/L (136-145); Total Protein 4.9 G/DL (6.4-8.3)
[2020-06-16] MEDS: PANTOPRAZOLE 40 MG TABLET PO SCH (08:53)
[2020-06-16] MEDS: DOCUSATE SODIUM 100 MG CAPSULE PO SCH (08:53)
[2020-06-16] MEDS: ASPIRIN EC 81 MG TABLET PO SCH (08:53)
[2020-06-16] MEDS: metFORMIN 500 MG TABLET PO SCH ×2 (08:53→20:19)
[2020-06-16] MEDS: FERROUS SULFATE 325 MG TABLET PO SCH (08:53)
[2020-06-16] MEDS: metroNIDAZOLE INJ 500 MG in PREMIX 1 EACH IV SCH ×2 (08:56→20:16)
[2020-06-16] MEDS: PHENAZOPYRIDINE 95 MG TABLET PO SCH ×3 (08:56→16:11)
[2020-06-16] MEDS ORDERED: POLYETHYLENE GLYCOL POWDER 17 GM PACK PO ONE (10:33)
[2020-06-16] MEDS: ZALEPLON 5 MG CAPSULE PO PRN (20:18)
[2020-06-16] MEDS: ATORVASTATIN 80 MG TABLET PO SCH (20:18)
[2020-06-16] MEDS: oxyCODONE/ACETAMINOPHEN 5-325 MG TABLET PO PRN (20:18)
[2020-06-16] MEDS: LACTULOSE 20 GM/30 ML UDCUP PO PRN (20:18)
[2020-06-17 06:24] LABS: Basophils % 0.4 % (0.0-0.8); Eosinophils # 0.6 10*3/uL (0.0-0.87); Eosinophils % 6.2 % (0.00-10.9); Hemoglobin 8.8 GM/DL (14.0-18.0); Immature Granulocytes % 0.5 %; Immature Granulocytes Absolute 0.05 #; Lymphocytes # 1.3 10*3/uL (1.4-4.0); Lymphocytes % 13.3 % (21.2-54.2); Mean Corpuscular HGB Conc 30.3 GM/DL (32-36); Mean Platelet Volume 9.9 FL (9.6-12.0); Monocytes % 11.9 % (1.7-12.7); Neutrophils % 67.7 % (38.7-73.9); Platelet Count 443 T/CUMM (130-400); Red Blood Count 2.93 MC/CUMM (3.8-5.5); Red Cell Distribution Width 16.3 % (9.3-17.3); White Blood Count 9.9 T/CUMM (4-12)
[2020-06-17 06:47] LABS: Calcium 8.7 MG/DL (8.5-10.1); Osmolality,Calculated 280.3 MOS/KG (273-304)
[2020-06-17] MEDS: POLYETHYLENE GLYCOL POWDER 17 GM PACK PO SCH (09:50)
[2020-06-17] MEDS: LACTULOSE 20 GM/30 ML UDCUP PO PRN ×2 (09:50→14:50)
[2020-06-17] MEDS: metFORMIN 500 MG TABLET PO SCH ×2 (09:51→21:12)
[2020-06-17] MEDS: PHENAZOPYRIDINE 95 MG TABLET PO SCH ×3 (09:51→16:07)
[2020-06-17] MEDS: ASPIRIN EC 81 MG TABLET PO SCH (09:51)
[2020-06-17] MEDS: FERROUS SULFATE 325 MG TABLET PO SCH (09:51)
[2020-06-17] MEDS: PANTOPRAZOLE 40 MG TABLET PO SCH (09:51)
[2020-06-17] MEDS: DOCUSATE SODIUM 100 MG CAPSULE PO SCH (09:51)
[2020-06-17] MEDS: metroNIDAZOLE INJ 500 MG in PREMIX 1 EACH IV SCH ×2 (09:52→21:13)
[2020-06-17] MEDS: oxyCODONE/ACETAMINOPHEN 5-325 MG TABLET PO PRN ×2 (11:50→21:12)
[2020-06-17] MEDS: ATORVASTATIN 80 MG TABLET PO SCH (21:12)
[2020-06-17] MEDS: ZALEPLON 5 MG CAPSULE PO PRN (21:13)
[2020-06-18 04:46] LABS: Basophils # 0.1 10*3/uL (0.0-0.2); Basophils % 0.5 % (0.0-0.8); Eosinophils # 0.7 10*3/uL (0.0-0.87); Eosinophils % 6.6 % (0.00-10.9); Hematocrit 28.9 VOL% (42.0-52.0); Hemoglobin 8.8 GM/DL (14.0-18.0); Immature Granulocytes % 0.6 %; Immature Granulocytes Absolute 0.07 #; Lymphocytes # 1.2 10*3/uL (1.4-4.0); Mean Corpuscular HGB Conc 30.4 GM/DL (32-36); Mean Corpuscular Volume 98.3 FL (87-102); Mean Platelet Volume 9.5 FL (9.6-12.0); Monocytes % 11.6 % (1.7-12.7); Neutrophils % 69.7 % (38.7-73.9); Platelet Count 432 T/CUMM (130-400); Red Blood Count 2.94 MC/CUMM (3.8-5.5); Red Cell Distribution Width 16.4 % (9.3-17.3); White Blood Count 10.8 T/CUMM (4-12)
[2020-06-18 05:14] LABS: Alanine Aminotransferase 22 U/L (16-61); Albumin 2.5 G/DL (3.4-5.0); Alkaline Phosphatase 54 U/L (45-117); Aspartate Amino Transferase 20 U/L (0-37); Bilirubin,Indirect 0.7 MG/DL (0.0-1.0); Blood Urea Nitrogen 14 MG/DL (7-18); Calcium 8.5 MG/DL (8.5-10.1); Carbon Dioxide 27 MMOL/L (21-32); Estimated Glom Filtration Rate 114 ML/MIN; Glucose 100 MG/DL (74-106); Osmolality,Calculated 277.5 MOS/KG (273-304); Potassium 4.2 MMOL/L (3.5-5.1); Sodium 139 MMOL/L (136-145); Total Protein 5.4 G/DL (6.4-8.3)
[2020-06-18 05:15] LABS: Troponin I 0.562 NG/ML (0.00-0.045)
[2020-06-18] MEDS: PHENAZOPYRIDINE 95 MG TABLET PO SCH ×3 (08:58→17:35)
[2020-06-18] MEDS: DOCUSATE SODIUM 100 MG CAPSULE PO SCH (08:59)
[2020-06-18] MEDS: FERROUS SULFATE 325 MG TABLET PO SCH (08:59)
[2020-06-18] MEDS: metFORMIN 500 MG TABLET PO SCH ×2 (08:59→20:53)
[2020-06-18] MEDS: PANTOPRAZOLE 40 MG TABLET PO SCH (08:59)
[2020-06-18] MEDS: ASPIRIN EC 81 MG TABLET PO SCH (08:59)
[2020-06-18] MEDS: POLYETHYLENE GLYCOL POWDER 17 GM PACK PO SCH (09:00)
[2020-06-18] MEDS: oxyCODONE/ACETAMINOPHEN 5-325 MG TABLET PO PRN ×3 (09:00→20:53)
[2020-06-18] MEDS: metroNIDAZOLE INJ 500 MG in PREMIX 1 EACH IV SCH ×2 (09:04→20:53)
[2020-06-18] MEDS: ATORVASTATIN 80 MG TABLET PO SCH (20:53)
[2020-06-18] MEDS: ZALEPLON 5 MG CAPSULE PO PRN (20:53)
[2020-06-19] MEDS: oxyCODONE/ACETAMINOPHEN 5-325 MG TABLET PO PRN (02:51)
[2020-06-19 06:25] LABS: Basophils # 0.1 10*3/uL (0.0-0.2); Basophils % 0.8 % (0.0-0.8); Eosinophils # 0.9 10*3/uL (0.0-0.87); Eosinophils % 7.4 % (0.00-10.9); Hematocrit 31.6 VOL% (42.0-52.0); Hemoglobin 9.6 GM/DL (14.0-18.0); Immature Granulocytes % 0.6 %; Immature Granulocytes Absolute 0.07 #; Lymphocytes # 1.6 10*3/uL (1.4-4.0); Mean Corpuscular HGB Conc 30.4 GM/DL (32-36); Mean Corpuscular Volume 96.9 FL (87-102); Mean Platelet Volume 9.6 FL (9.6-12.0); Monocytes % 11.6 % (1.7-12.7); Neutrophils % 65.6 % (38.7-73.9); Platelet Count 497 T/CUMM (130-400); Red Blood Count 3.26 MC/CUMM (3.8-5.5); Red Cell Distribution Width 16.3 % (9.3-17.3); White Blood Count 11.5 T/CUMM (4-12)
[2020-06-19 07:08] LABS: Alanine Aminotransferase 23 U/L (16-61); Albumin 2.9 G/DL (3.4-5.0); Alkaline Phosphatase 61 U/L (45-117); Aspartate Amino Transferase 18 U/L (0-37); Bilirubin,Indirect 0.3 MG/DL (0.0-1.0); Blood Urea Nitrogen 13 MG/DL (7-18); Calcium 8.7 MG/DL (8.5-10.1); Carbon Dioxide 26 MMOL/L (21-32); Estimated Glom Filtration Rate 107 ML/MIN; Glucose 114 MG/DL (74-106); Osmolality,Calculated 277.5 MOS/KG (273-304); Potassium 4.2 MMOL/L (3.5-5.1); Sodium 139 MMOL/L (136-145); Total Protein 6.3 G/DL (6.4-8.3)
[2020-06-19 07:10] LABS: Troponin I 0.352 NG/ML (0.00-0.045)
[2020-06-19] MEDS: DOCUSATE SODIUM 100 MG CAPSULE PO SCH (09:38)
[2020-06-19] MEDS: metFORMIN 500 MG TABLET PO SCH (09:38)
[2020-06-19] MEDS: PHENAZOPYRIDINE 95 MG TABLET PO SCH ×2 (09:38→11:32)
[2020-06-19] MEDS: FERROUS SULFATE 325 MG TABLET PO SCH (09:38)
[2020-06-19] MEDS: ASPIRIN EC 81 MG TABLET PO SCH (09:38)
[2020-06-19] MEDS: POLYETHYLENE GLYCOL POWDER 17 GM PACK PO SCH (09:39)
[2020-06-19] MEDS: PANTOPRAZOLE 40 MG TABLET PO SCH (09:39)
[2020-06-19] MEDS: metroNIDAZOLE INJ 500 MG in PREMIX 1 EACH IV SCH (09:43)
[2020-06-19 13:00] VITALS: BP 115/68
== END 2020-06-19 15:55 | disposition home health service (06) | DRG 236 ==
LOC: N.ICU 12:46 → N.CVR 06-09 07:07 → N.ICU 06-10 11:53 → N.TELES 06-15 09:28

== ENCOUNTER 2020-07-15 18:14 | Inpatient (IN) ==
[2020-07-15] MEDS ORDERED: MORPHINE 4 MG/1 ML VIAL IV ONE (18:38)
[2020-07-15] MEDS ORDERED: SODIUM CHLORIDE 0.9% 1,000 ML IV STA (18:38)
[2020-07-15] MEDS ORDERED: ONDANSETRON 4 MG/2 ML VIAL IV ONE (18:38)
[2020-07-15 19:11] LABS: Basophils # 0.1 10*3/uL (0.0-0.2); Basophils % 0.4 % (0.0-0.8); Eosinophils # 0.2 10*3/uL (0.0-0.87); Eosinophils % 0.9 % (0.00-10.9); Hematocrit 40.3 VOL% (42.0-52.0); Hemoglobin 12.6 GM/DL (14.0-18.0); Immature Granulocytes % 0.3 %; Immature Granulocytes Absolute 0.06 #; Lymphocytes # 1.1 10*3/uL (1.4-4.0); Lymphocytes % 5.5 % (21.2-54.2); Mean Corpuscular HGB Conc 31.3 GM/DL (32-36); Mean Corpuscular Volume 86.9 FL (87-102); Mean Platelet Volume 10.4 FL (9.6-12.0); Monocytes % 7.4 % (1.7-12.7); Neutrophils % 85.5 % (38.7-73.9); Platelet Count 569 T/CUMM (130-400); Red Blood Count 4.64 MC/CUMM (3.8-5.5); Red Cell Distribution Width 14.5 % (9.3-17.3); White Blood Count 19.3 T/CUMM (4-12)
[2020-07-15 19:30] LABS: Alanine Aminotransferase 21 U/L (16-61); Albumin 3.7 G/DL (3.4-5.0); Alkaline Phosphatase 127 U/L (45-117); Aspartate Amino Transferase 21 U/L (0-37); Bilirubin,Total < 0.39 MG/DL (0.2-1.0); Blood Urea Nitrogen 30 MG/DL (7-18); Calcium 10.2 MG/DL (8.5-10.1); Carbon Dioxide 27 MMOL/L (21-32); Estimated Glom Filtration Rate 93 ML/MIN; Glucose 150 MG/DL (74-106); Potassium 4.3 MMOL/L (3.5-5.1); Sodium 136 MMOL/L (136-145)
[2020-07-15] MEDS ORDERED: ALUM/MAG/SIMETH/LIDO VISC 1:1 30 ML BOTTLE PO STA (19:51)
[2020-07-15] MEDS ORDERED: METOPROLOL TARTRATE 5 MG/5 ML VIAL IV STA (19:54)
[2020-07-15 19:56] LABS: Bilirubin,Urine Negative (Negative); Blood, Urine Negative (Negative); Glucose,Urine (UA) Negative (Negative); Hyaline Casts,Urine 11 /LPF (0-3); Ketones,Urine 20 mg/dL (Negative); Mucus,Urine Few /LPF (Occasional); Nitrite,Urine Negative (Negative); Protein,Urine Negative; Squamous Epithelial Cell,Urine Occasional /HPF (0-10); Urine Appearance CLEAR (Clear); Urine Color Yellow (Yellow); Urine Specific Gravity 1.015 (1.001-1.035); Urine Urobilinogen < 2.0 EU/DL (0.2-1.0)
[2020-07-15] MEDS ORDERED: SODIUM CHLORIDE 0.9% 500 ML IV STA (19:59)
[2020-07-15] MEDS ORDERED: DEXTROSE 50% 25 GM/50 ML VIAL IV PRN (21:00)
[2020-07-15] MEDS ORDERED: ALBUTEROL 2.5 MG/3 ML NEB RESP TX PRN (21:00)
[2020-07-15] MEDS ORDERED: SIMETHICONE CHEW 125 MG TABLET PO PRN (21:00)
[2020-07-15] MEDS ORDERED: ZALEPLON 5 MG CAPSULE PO PRN (21:00)
[2020-07-15] MEDS ORDERED: NICOTINE 21 MG/24 HR PATCH TRANSDERM PRN (21:00)
[2020-07-15] MEDS ORDERED: CALCIUM CARBONATE CHEW 500 MG TABLET PO PRN (21:00)
[2020-07-15] MEDS ORDERED: ACETAMINOPHEN 325 MG TABLET PO PRN (21:00)
[2020-07-15] MEDS ORDERED: ALUMINUM/MAGNES/SIMETH MAX STR 30 ML UDCUP PO PRN (21:00)
[2020-07-15] MEDS ORDERED: GLUCAGON 1 MG VIAL IM PRN (21:00)
[2020-07-15] MEDS ORDERED: diphenhydrAMINE CAP 25 MG CAPSULE PO PRN (21:00)
[2020-07-15] MEDS ORDERED: hydrALAZINE 20 MG/1 ML VIAL IV PRN (21:00)
[2020-07-15] MEDS ORDERED: guaiFENesin/DM ER 600-30 MG TABLET PO PRN (21:00)
[2020-07-15] MEDS ORDERED: PROMETHAZINE 25 MG/1 ML VIAL IM PRN (21:00)
[2020-07-15] MEDS ORDERED: PIPERACILLIN/TAZOBACTAM 3,375 MG in SODIUM CHLORIDE 0.9% 100 ML IV STA (21:01)
[2020-07-15] MEDS ORDERED: VANCOMYCIN INJ 1,000 MG in SODIUM CHLORIDE 0.9% 250 ML IV STA (21:01)
[2020-07-15] MEDS ORDERED: ENOXAPARIN 80 MG/0.8 ML SYRINGE SUBCUT ONE (21:03)
[2020-07-15] MEDS: MORPHINE 4 MG/1 ML VIAL IV PRN (23:56)
[2020-07-16] MEDS: DOCUSATE SODIUM 100 MG CAPSULE PO SCH ×2 (00:14→08:37)
[2020-07-16] MEDS: INSULIN LISPRO 100 UNIT/ML SUBCUT SCH ×5 (00:14→21:31)
[2020-07-16] MEDS: SODIUM CHLORIDE 0.9% 1,000 ML IV SCH ×2 (00:14→12:46)
[2020-07-16] MEDS: ALBUTEROL/IPRATROPIUM 3 ML NEB RESP TX SCH ×4 (00:28→19:28)
[2020-07-16 02:21] LABS: Basophils # 0.1 10*3/uL (0.0-0.2); Basophils % 0.4 % (0.0-0.8); Eosinophils % 0.1 % (0.00-10.9); Hematocrit 34.7 VOL% (42.0-52.0); Hemoglobin 10.7 GM/DL (14.0-18.0); Immature Granulocytes % 0.3 %; Immature Granulocytes Absolute 0.05 #; Lymphocytes # 0.9 10*3/uL (1.4-4.0); Lymphocytes % 5.3 % (21.2-54.2); Mean Corpuscular HGB Conc 30.8 GM/DL (32-36); Mean Corpuscular Volume 88.7 FL (87-102); Mean Platelet Volume 10.7 FL (9.6-12.0); Monocytes % 7.5 % (1.7-12.7); Neutrophils % 86.4 % (38.7-73.9); Platelet Count 367 T/CUMM (130-400); Red Blood Count 3.91 MC/CUMM (3.8-5.5); Red Cell Distribution Width 14.6 % (9.3-17.3); White Blood Count 16.6 T/CUMM (4-12)
[2020-07-16 02:36] LABS: Osmolality,Calculated 280.1 MOS/KG (273-304); Potassium 4.3 MMOL/L (3.5-5.1)
[2020-07-16] MEDS: PIPERACILLIN/TAZOBACTAM 3,375 MG in SODIUM CHLORIDE 0.9% 100 ML IV SCH ×3 (05:26→23:34)
[2020-07-16] MEDS: ONDANSETRON 4 MG/2 ML VIAL IV PRN ×2 (06:50→16:25)
[2020-07-16] MEDS: VANCOMYCIN INJ 1,000 MG in SODIUM CHLORIDE 0.9% 250 ML IV SCH ×2 (08:47→22:31)
[2020-07-16] MEDS: MORPHINE 4 MG/1 ML VIAL IV PRN ×2 (08:50→12:47)
[2020-07-16] MEDS ORDERED: PANTOPRAZOLE 40 MG TABLET PO SCH (09:00)
[2020-07-16] MEDS ORDERED: METOPROLOL TARTRATE 25 MG TABLET PO SCH (09:00)
[2020-07-16] MEDS ORDERED: ENOXAPARIN 40 MG/0.4 ML SYRINGE SUBCUT SCH (09:00)
[2020-07-16] MEDS ORDERED: ASPIRIN EC 81 MG TABLET PO SCH (09:00)
[2020-07-16] MEDS ORDERED: BISACODYL 5 MG TABLET PO SCH (09:00)
[2020-07-16] MEDS ORDERED: TAMSULOSIN 0.4 MG CAPSULE PO SCH (15:00)
[2020-07-16 16:57] LABS: Basophils # 0.1 10*3/uL (0.0-0.2); Basophils % 0.9 % (0.0-0.8); Eosinophils # 0.1 10*3/uL (0.0-0.87); Eosinophils % 0.6 % (0.00-10.9); Hematocrit 21.8 VOL% (42.0-52.0); Immature Granulocytes % 0.4 %; Immature Granulocytes Absolute 0.07 #; Lymphocytes # 1.3 10*3/uL (1.4-4.0); Lymphocytes % 8.5 % (21.2-54.2); Mean Corpuscular HGB Conc 29.4 GM/DL (32-36); Mean Platelet Volume 10.9 FL (9.6-12.0); Monocytes % 7.5 % (1.7-12.7); Neutrophils % 82.1 % (38.7-73.9); Platelet Count 383 T/CUMM (130-400); Red Blood Count 2.32 MC/CUMM (3.8-5.5); Red Cell Distribution Width 14.8 % (9.3-17.3); White Blood Count 15.6 T/CUMM (4-12)
[2020-07-16 17:00] LABS: Hemoglobin 6.4 GM/DL (14.0-18.0)
[2020-07-16] MEDS: LACTATED RINGERS 1,000 ML IV SCH ×2 (17:00→23:34)
[2020-07-16 17:07] LABS: INR 1.2; PT Patient Result 12.9 SECS (9.8-11.9); Partial Thromboplastin Time 25.4 SECS (23.9-33.8)
[2020-07-16] MEDS ORDERED: SODIUM CHLORIDE 0.9% 1,000 ML IV PRN (17:09)
[2020-07-16 17:20] LABS: Albumin 2.4 G/DL (3.4-5.0); Bilirubin,Total 0.4 MG/DL (0.2-1.0); Osmolality,Calculated 297.5 MOS/KG (273-304); Potassium 4.4 MMOL/L (3.5-5.1); Total Protein 5.1 G/DL (5.0-7.5)
[2020-07-16] MEDS ORDERED: PANTOPRAZOLE INJ 80 MG in SODIUM CHLORIDE 0.9% 100 ML IV ONE (17:30)
[2020-07-16] MEDS: PANTOPRAZOLE INJ 200 MG in SODIUM CHLORIDE 0.9% 250 ML IV SCH (19:01)
[2020-07-16] MEDS ORDERED: LORazepam 2 MG/1 ML VIAL ONE (20:04)
[2020-07-16] MEDS ORDERED: LORazepam 2 MG/1 ML VIAL IV ONE (20:05)
[2020-07-16] MEDS ORDERED: ATORVASTATIN 80 MG TABLET PO SCH (21:00)
[2020-07-17] MEDS: ALBUTEROL/IPRATROPIUM 3 ML NEB RESP TX SCH ×4 (01:45→19:47)
[2020-07-17 04:58] LABS: Basophils # 0.2 10*3/uL (0.0-0.2); Basophils % 1.1 % (0.0-0.8); Eosinophils # 0.2 10*3/uL (0.0-0.87); Eosinophils % 1.2 % (0.00-10.9); Hematocrit 28.1 VOL% (42.0-52.0); Immature Granulocytes % 0.5 %; Immature Granulocytes Absolute 0.07 #; Lymphocytes # 1.4 10*3/uL (1.4-4.0); Lymphocytes % 9.6 % (21.2-54.2); Mean Corpuscular HGB Conc 31.7 GM/DL (32-36); Mean Corpuscular Volume 90.1 FL (87-102); Mean Platelet Volume 10.5 FL (9.6-12.0); Monocytes % 9.8 % (1.7-12.7); Neutrophils % 77.8 % (38.7-73.9); Platelet Count 244 T/CUMM (130-400); Red Blood Count 3.12 MC/CUMM (3.8-5.5); White Blood Count 14.4 T/CUMM (4-12)
[2020-07-17 05:00] LABS: Hemoglobin 8.9 GM/DL (14.0-18.0)
[2020-07-17 05:18] LABS: Calcium 7.9 MG/DL (8.5-10.1); Osmolality,Calculated 290.3 MOS/KG (273-304); Potassium 4.2 MMOL/L (3.5-5.1)
[2020-07-17] MEDS: LACTATED RINGERS 1,000 ML IV SCH ×3 (06:25→20:55)
[2020-07-17] MEDS: PIPERACILLIN/TAZOBACTAM 3,375 MG in SODIUM CHLORIDE 0.9% 100 ML IV SCH ×3 (06:26→22:55)
[2020-07-17] MEDS: INSULIN LISPRO 100 UNIT/ML SUBCUT SCH ×3 (08:23→16:55)
[2020-07-17] MEDS: VANCOMYCIN INJ 1,000 MG in SODIUM CHLORIDE 0.9% 250 ML IV SCH ×2 (10:00→21:50)
[2020-07-17 10:26] LABS: Hematocrit 28.4 VOL% (42.0-52.0)
[2020-07-17] MEDS: oxyCODONE/ACETAMINOPHEN 5-325 MG TABLET PO PRN (21:32)
[2020-07-17] MEDS: PANTOPRAZOLE INJ 200 MG in SODIUM CHLORIDE 0.9% 250 ML IV SCH (22:49)
[2020-07-18] MEDS: INSULIN LISPRO 100 UNIT/ML SUBCUT SCH ×5 (00:24→22:47)
[2020-07-18] MEDS: ALBUTEROL/IPRATROPIUM 3 ML NEB RESP TX SCH ×4 (01:39→19:50)
[2020-07-18] MEDS: oxyCODONE/ACETAMINOPHEN 5-325 MG TABLET PO PRN ×3 (01:55→20:41)
[2020-07-18 05:20] LABS: Calcium 7.8 MG/DL (8.5-10.1); Osmolality,Calculated 277.5 MOS/KG (273-304); Potassium 3.8 MMOL/L (3.5-5.1)
[2020-07-18 06:32] LABS: Basophils # 0.1 10*3/uL (0.0-0.2); Basophils % 0.5 % (0.0-0.8); Eosinophils # 0.5 10*3/uL (0.0-0.87); Hematocrit 21.2 VOL% (42.0-52.0); Immature Granulocytes % 0.5 %; Immature Granulocytes Absolute 0.06 #; Lymphocytes # 1.2 10*3/uL (1.4-4.0); Lymphocytes % 10.1 % (21.2-54.2); Mean Corpuscular Volume 89.5 FL (87-102); Mean Platelet Volume 11.2 FL (9.6-12.0); Monocytes % 10.6 % (1.7-12.7); Neutrophils % 74.3 % (38.7-73.9); Platelet Count 198 T/CUMM (130-400); Red Cell Distribution Width 16.4 % (9.3-17.3); White Blood Count 12.1 T/CUMM (4-12)
[2020-07-18 06:36] LABS: Red Blood Count 2.37 MC/CUMM (3.8-5.5)
[2020-07-18] MEDS: PIPERACILLIN/TAZOBACTAM 3,375 MG in SODIUM CHLORIDE 0.9% 100 ML IV SCH ×3 (07:32→22:39)
[2020-07-18] MEDS ORDERED: SODIUM CHLORIDE 0.9% 1,000 ML IV PRN (07:38)
[2020-07-18] MEDS: LACTATED RINGERS 1,000 ML IV SCH ×4 (12:22→20:52)
[2020-07-18] MEDS ORDERED: propofoL 200 MG/20 ML VIAL IV ONE (12:51)
[2020-07-18] MEDS ORDERED: LIDOCAINE 2% 5 ML VIAL ONE (12:51)
[2020-07-18] MEDS: VANCOMYCIN INJ 1,000 MG in SODIUM CHLORIDE 0.9% 250 ML IV SCH ×2 (14:06→20:42)
[2020-07-18] MEDS: PANTOPRAZOLE 40 MG TABLET PO SCH (20:41)
[2020-07-19] MEDS: ALBUTEROL/IPRATROPIUM 3 ML NEB RESP TX SCH ×4 (00:20→18:54)
[2020-07-19] MEDS: oxyCODONE/ACETAMINOPHEN 5-325 MG TABLET PO PRN ×4 (00:47→20:30)
[2020-07-19] MEDS: LACTATED RINGERS 1,000 ML IV SCH ×6 (03:05→22:01)
[2020-07-19 05:16] LABS: Basophils # 0.1 10*3/uL (0.0-0.2); Basophils % 0.5 % (0.0-0.8); Eosinophils # 0.5 10*3/uL (0.0-0.87); Eosinophils % 3.3 % (0.00-10.9); Hematocrit 31.1 VOL% (42.0-52.0); Immature Granulocytes % 0.6 %; Lymphocytes # 1.1 10*3/uL (1.4-4.0); Lymphocytes % 7.1 % (21.2-54.2); Mean Corpuscular HGB Conc 32.5 GM/DL (32-36); Mean Corpuscular Volume 89.1 FL (87-102); Monocytes % 10.7 % (1.7-12.7); Neutrophils % 77.8 % (38.7-73.9); Platelet Count 229 T/CUMM (130-400); Red Blood Count 3.49 MC/CUMM (3.8-5.5); Red Cell Distribution Width 15.9 % (9.3-17.3); White Blood Count 15.4 T/CUMM (4-12)
[2020-07-19 05:20] LABS: Hemoglobin 10.1 GM/DL (14.0-18.0)
[2020-07-19 05:40] LABS: Calcium 8.1 MG/DL (8.5-10.1); Osmolality,Calculated 271.8 MOS/KG (273-304); Potassium 3.8 MMOL/L (3.5-5.1)
[2020-07-19] MEDS: PIPERACILLIN/TAZOBACTAM 3,375 MG in SODIUM CHLORIDE 0.9% 100 ML IV SCH ×2 (07:17→13:56)
[2020-07-19] MEDS: INSULIN LISPRO 100 UNIT/ML SUBCUT SCH ×4 (09:03→20:35)
[2020-07-19] MEDS: VANCOMYCIN INJ 1,000 MG in SODIUM CHLORIDE 0.9% 250 ML IV SCH ×2 (09:07→20:32)
[2020-07-19] MEDS: PANTOPRAZOLE 40 MG TABLET PO SCH ×2 (09:07→20:30)
[2020-07-20] MEDS: ALBUTEROL/IPRATROPIUM 3 ML NEB RESP TX SCH ×4 (00:36→18:57)
[2020-07-20] MEDS: oxyCODONE/ACETAMINOPHEN 5-325 MG TABLET PO PRN ×5 (00:52→20:16)
[2020-07-20] MEDS: PIPERACILLIN/TAZOBACTAM 3,375 MG in SODIUM CHLORIDE 0.9% 100 ML IV SCH ×3 (00:52→14:53)
[2020-07-20] MEDS: LACTATED RINGERS 1,000 ML IV SCH ×5 (02:00→23:41)
[2020-07-20 05:13] LABS: Basophils # 0.1 10*3/uL (0.0-0.2); Basophils % 0.4 % (0.0-0.8); Eosinophils # 0.8 10*3/uL (0.0-0.87); Hematocrit 29.2 VOL% (42.0-52.0); Hemoglobin 9.7 GM/DL (14.0-18.0); Immature Granulocytes % 0.5 %; Immature Granulocytes Absolute 0.08 #; Lymphocytes # 1.4 10*3/uL (1.4-4.0); Lymphocytes % 8.3 % (21.2-54.2); Mean Corpuscular HGB Conc 33.2 GM/DL (32-36); Mean Corpuscular Volume 88.2 FL (87-102); Mean Platelet Volume 10.3 FL (9.6-12.0); Monocytes % 10.6 % (1.7-12.7); Neutrophils % 75.2 % (38.7-73.9); Platelet Count 280 T/CUMM (130-400); Red Blood Count 3.31 MC/CUMM (3.8-5.5); Red Cell Distribution Width 16.1 % (9.3-17.3); White Blood Count 16.3 T/CUMM (4-12)
[2020-07-20] MEDS: INSULIN LISPRO 100 UNIT/ML SUBCUT SCH ×4 (07:40→20:16)
[2020-07-20] MEDS: VANCOMYCIN INJ 1,000 MG in SODIUM CHLORIDE 0.9% 250 ML IV SCH ×2 (09:07→20:16)
[2020-07-20] MEDS: PANTOPRAZOLE 40 MG TABLET PO SCH ×2 (09:07→20:16)
[2020-07-21] MEDS: ALBUTEROL/IPRATROPIUM 3 ML NEB RESP TX SCH ×3 (00:29→13:05)
[2020-07-21] MEDS: oxyCODONE/ACETAMINOPHEN 5-325 MG TABLET PO PRN ×3 (01:02→12:19)
[2020-07-21] MEDS: PIPERACILLIN/TAZOBACTAM 3,375 MG in SODIUM CHLORIDE 0.9% 100 ML IV SCH ×3 (01:53→15:42)
[2020-07-21 05:42] LABS: Basophils # 0.1 10*3/uL (0.0-0.2); Basophils % 0.5 % (0.0-0.8); Eosinophils # 0.9 10*3/uL (0.0-0.87); Eosinophils % 6.1 % (0.00-10.9); Hematocrit 33.6 VOL% (42.0-52.0); Immature Granulocytes % 0.5 %; Immature Granulocytes Absolute 0.08 #; Lymphocytes # 0.9 10*3/uL (1.4-4.0); Lymphocytes % 6.4 % (21.2-54.2); Mean Corpuscular HGB Conc 32.7 GM/DL (32-36); Mean Corpuscular Volume 88.7 FL (87-102); Mean Platelet Volume 10.1 FL (9.6-12.0); Monocytes % 10.1 % (1.7-12.7); Neutrophils % 76.4 % (38.7-73.9); Platelet Count 331 T/CUMM (130-400); Red Blood Count 3.79 MC/CUMM (3.8-5.5); Red Cell Distribution Width 15.9 % (9.3-17.3); White Blood Count 14.7 T/CUMM (4-12)
[2020-07-21] MEDS: LACTATED RINGERS 1,000 ML IV SCH ×2 (05:46→15:42)
[2020-07-21] MEDS: INSULIN LISPRO 100 UNIT/ML SUBCUT SCH ×3 (07:21→17:50)
[2020-07-21] MEDS ORDERED: LACTULOSE 20 GM/30 ML UDCUP PO ONE (08:02)
[2020-07-21] MEDS ORDERED: LACTULOSE 20 GM/30 ML UDCUP PO PRN (08:03)
[2020-07-21] MEDS: PANTOPRAZOLE 40 MG TABLET PO SCH (10:06)
[2020-07-21 12:19] VITALS: BP 136/83
== END 2020-07-21 18:42 | disposition swing bed (61) | DRG 193 ==
LOC: N.ED 18:14 → N.EDINP 21:00 → SUATTDRO 21:00 → N.TELES 21:40 → N.ICU 07-16 16:26 → N.TELES 07-17 17:48
PROVIDERS: ADMIT Internal Medicine; ATTEND Internal Medicine

== ENCOUNTER 2020-08-03 08:20 | Inpatient (IN) ==
[2020-08-03] MEDS ORDERED: ONDANSETRON 4 MG/2 ML VIAL IV STA (08:25)
[2020-08-03] MEDS ORDERED: SODIUM CHLORIDE 0.9% 1,000 ML IV STA (08:25)
[2020-08-03] MEDS ORDERED: PANTOPRAZOLE INJ 80 MG in SODIUM CHLORIDE 0.9% 100 ML IV STA (08:25)
[2020-08-03] MEDS ORDERED: PANTOPRAZOLE 40 MG VIAL IV ONE ×2 (08:28→09:01)
[2020-08-03 08:59] LABS: Basophils # 0.1 10*3/uL (0.0-0.2); Basophils % 0.8 % (0.0-0.8); Eosinophils # 0.4 10*3/uL (0.0-0.87); Hematocrit 32.9 VOL% (42.0-52.0); Hemoglobin 10.1 GM/DL (14.0-18.0); Immature Granulocytes % 1.4 %; Immature Granulocytes Absolute 0.25 #; Lymphocytes # 1.7 10*3/uL (1.4-4.0); Lymphocytes % 9.4 % (21.2-54.2); Mean Corpuscular HGB Conc 30.7 GM/DL (32-36); Mean Corpuscular Volume 91.6 FL (87-102); Mean Platelet Volume 10.1 FL (9.6-12.0); Neutrophils % 81.4 % (38.7-73.9); Platelet Count 654 T/CUMM (130-400); Red Blood Count 3.59 MC/CUMM (3.8-5.5); Red Cell Distribution Width 15.8 % (9.3-17.3); White Blood Count 18.2 T/CUMM (4-12)
[2020-08-03 09:07] LABS: INR 1.1; PT Patient Result 11.6 SECS (9.8-11.9); Partial Thromboplastin Time 21.9 SECS (23.9-33.8)
[2020-08-03 09:23] LABS: Alanine Aminotransferase 15 U/L (16-61); Albumin 2.9 G/DL (3.4-5.0); Alkaline Phosphatase 68 U/L (45-117); Aspartate Amino Transferase 14 U/L (0-37); Bilirubin,Total < 0.39 MG/DL (0.2-1.0); Blood Urea Nitrogen 45 MG/DL (7-18); Calcium 9.1 MG/DL (8.5-10.1); Carbon Dioxide 28 MMOL/L (21-32); Estimated Glom Filtration Rate 69 ML/MIN; Glucose 187 MG/DL (74-106); Osmolality,Calculated 295.4 MOS/KG (273-304); Potassium 4.6 MMOL/L (3.5-5.1); Sodium 140 MMOL/L (136-145); Total Protein 6.5 G/DL (6.4-8.2)
[2020-08-03] MEDS ORDERED: ONDANSETRON 4 MG/2 ML VIAL IV PRN (10:00)
[2020-08-03] MEDS: LACTATED RINGERS 1,000 ML IV SCH ×2 (10:30→23:43)
[2020-08-03] MEDS: PANTOPRAZOLE INJ 200 MG in SODIUM CHLORIDE 0.9% 250 ML IV SCH (10:30)
[2020-08-03 13:12] LABS: Basophils # 0.1 10*3/uL (0.0-0.2); Basophils % 0.5 % (0.0-0.8); Eosinophils # 0.1 10*3/uL (0.0-0.87); Eosinophils % 0.7 % (0.00-10.9); Hematocrit 28.1 VOL% (42.0-52.0); Hemoglobin 8.4 GM/DL (14.0-18.0); Immature Granulocytes % 1.3 %; Immature Granulocytes Absolute 0.17 #; Lymphocytes # 1.1 10*3/uL (1.4-4.0); Lymphocytes % 7.7 % (21.2-54.2); Mean Corpuscular HGB Conc 29.9 GM/DL (32-36); Mean Corpuscular Volume 94.3 FL (87-102); Mean Platelet Volume 9.8 FL (9.6-12.0); Neutrophils % 84.8 % (38.7-73.9); Platelet Count 561 T/CUMM (130-400); Red Blood Count 2.98 MC/CUMM (3.8-5.5); Red Cell Distribution Width 15.9 % (9.3-17.3); White Blood Count 13.6 T/CUMM (4-12)
[2020-08-03] MEDS ORDERED: SODIUM CHLORIDE 0.9% 1,000 ML IV PRN (13:21)
[2020-08-04] MEDS: LACTATED RINGERS 1,000 ML IV SCH (02:20)
[2020-08-04 05:35] LABS: Basophils # 0.1 10*3/uL (0.0-0.2); Basophils % 1.1 % (0.0-0.8); Eosinophils # 0.6 10*3/uL (0.0-0.87); Eosinophils % 5.2 % (0.00-10.9); Hematocrit 31.2 VOL% (42.0-52.0); Hemoglobin 9.9 GM/DL (14.0-18.0); Immature Granulocytes % 0.7 %; Immature Granulocytes Absolute 0.07 #; Lymphocytes # 1.7 10*3/uL (1.4-4.0); Lymphocytes % 15.7 % (21.2-54.2); Mean Corpuscular HGB Conc 31.7 GM/DL (32-36); Mean Corpuscular Volume 89.9 FL (87-102); Monocytes % 7.5 % (1.7-12.7); Neutrophils % 69.8 % (38.7-73.9); Platelet Count 412 T/CUMM (130-400); Red Blood Count 3.47 MC/CUMM (3.8-5.5); Red Cell Distribution Width 15.7 % (9.3-17.3); White Blood Count 10.6 T/CUMM (4-12)
[2020-08-04 06:03] LABS: Albumin 2.5 G/DL (3.4-5.0); Bilirubin,Total 0.9 MG/DL (0.2-1.0); Calcium 8.3 MG/DL (8.5-10.1); Osmolality,Calculated 288.3 MOS/KG (273-304); Potassium 4.3 MMOL/L (3.5-5.1); Total Protein 5.2 G/DL (6.4-8.2)
[2020-08-04] MEDS ORDERED: LACTATED RINGERS 1,000 ML IV SCH (08:00)
[2020-08-04] MEDS: PANTOPRAZOLE INJ 200 MG in SODIUM CHLORIDE 0.9% 250 ML IV SCH (10:36)
[2020-08-04] MEDS ORDERED: GLUCAGON 1 MG VIAL IM PRN (11:00)
[2020-08-04] MEDS ORDERED: DEXTROSE 50% 25 GM/50 ML VIAL IV PRN (11:00)
[2020-08-04] MEDS: INSULIN LISPRO 100 UNIT/ML SUBCUT SCH ×3 (11:51→21:02)
[2020-08-04] MEDS ORDERED: propofoL 200 MG/20 ML VIAL IV ONE (13:18)
[2020-08-04] MEDS ORDERED: LIDOCAINE 2% 5 ML VIAL ONE (13:18)
[2020-08-04] MEDS: METOPROLOL SUCCINATE XL 25 MG TABLET PO SCH (14:00)
[2020-08-04] MEDS ORDERED: CYCLOBENZAPRINE 10 MG TABLET PO PRN (14:22)
[2020-08-04] MEDS: oxyCODONE/ACETAMINOPHEN 5-325 MG TABLET PO PRN ×2 (15:31→20:59)
[2020-08-04] MEDS ORDERED: ATORVASTATIN 80 MG TABLET PO SCH (21:00)
[2020-08-04] MEDS ORDERED: TAMSULOSIN 0.4 MG CAPSULE PO SCH (21:00)
[2020-08-05 06:10] LABS: Basophils # 0.1 10*3/uL (0.0-0.2); Eosinophils # 0.6 10*3/uL (0.0-0.87); Eosinophils % 7.2 % (0.00-10.9); Hematocrit 28.4 VOL% (42.0-52.0); Hemoglobin 9.1 GM/DL (14.0-18.0); Immature Granulocytes % 0.8 %; Immature Granulocytes Absolute 0.07 #; Lymphocytes # 1.4 10*3/uL (1.4-4.0); Lymphocytes % 15.4 % (21.2-54.2); Mean Corpuscular Volume 89.6 FL (87-102); Mean Platelet Volume 10.3 FL (9.6-12.0); Monocytes % 8.3 % (1.7-12.7); Neutrophils % 67.3 % (38.7-73.9); Platelet Count 406 T/CUMM (130-400); Red Blood Count 3.17 MC/CUMM (3.8-5.5); Red Cell Distribution Width 15.7 % (9.3-17.3); White Blood Count 8.8 T/CUMM (4-12)
[2020-08-05 06:42] LABS: Calcium 8.6 MG/DL (8.5-10.1); Osmolality,Calculated 275.7 MOS/KG (273-304)
[2020-08-05 08:23] VITALS: BP 110/69
[2020-08-05] MEDS: METOPROLOL SUCCINATE XL 25 MG TABLET PO SCH (08:47)
[2020-08-05] MEDS: INSULIN LISPRO 100 UNIT/ML SUBCUT SCH (09:31)
[2020-08-05] MEDS: oxyCODONE/ACETAMINOPHEN 5-325 MG TABLET PO PRN (09:34)
== END 2020-08-05 11:56 | disposition home health service (06) | DRG 381 ==
LOC: N.ED 08:20 → SUATTDRO 10:42 → N.EDINP 10:42 → N.ICU 11:23 → N.TELEN 08-04 18:20 → N.TELES 08-04 18:20
PROVIDERS: ADMIT Family Medicine; ATTEND Internal Medicine

== ENCOUNTER 2021-04-04 14:22 | Observation (INO) ==
[2021-04-04] MEDS ORDERED: MORPHINE 2 MG/1 ML SYRINGE IV STA (16:12)
[2021-04-04] MEDS ORDERED: ONDANSETRON 4 MG/2 ML VIAL IV STA ×2 (16:12→20:08)
[2021-04-04] MEDS ORDERED: SODIUM CHLORIDE 0.9% 1,000 ML IV STA (16:12)
[2021-04-04 17:08] LABS: Basophils % 0.3 % (0.0-0.8); Eosinophils # 0.1 10*3/uL (0.0-0.87); Eosinophils % 0.6 % (0.00-10.9); Hematocrit 53.8 VOL% (42.0-52.0); Hemoglobin 17.4 GM/DL (14.0-18.0); Immature Granulocytes % 0.4 %; Immature Granulocytes Absolute 0.05 #; Lymphocytes # 0.9 10*3/uL (1.4-4.0); Lymphocytes % 6.2 % (21.2-54.2); Mean Corpuscular HGB Conc 32.3 GM/DL (32-36); Mean Corpuscular Volume 87.6 FL (87-102); Mean Platelet Volume 9.9 FL (9.6-12.0); Monocytes % 6.8 % (1.7-12.7); Neutrophils % 85.7 % (38.7-73.9); Platelet Count 263 T/CUMM (130-400); Red Blood Count 6.14 MC/CUMM (3.8-5.5); Red Cell Distribution Width 12.8 % (9.3-17.3); White Blood Count 14.1 T/CUMM (4-12)
[2021-04-04 17:19] LABS: INR 1.5; PT Patient Result 16.7 SECS (10.5-12.0); Partial Thromboplastin Time 34.9 SECS (23.8-32.1)
[2021-04-04 17:30] LABS: Albumin 4.1 G/DL (3.4-5.0); Bilirubin,Total 0.6 MG/DL (0.20-1.00); Calcium 9.7 MG/DL (8.5-10.1); Osmolality,Calculated 277.8 MOS/KG (273-304); Potassium 4.5 MMOL/L (3.5-5.1); Total Protein 8.3 G/DL (6.4-8.2)
[2021-04-04] MEDS ORDERED: ALUM/MAG/SIMETH/LIDO VISC 1:1 30 ML BOTTLE PO STA (18:12)
[2021-04-04] MEDS ORDERED: PANTOPRAZOLE 40 MG TABLET PO STA (18:13)
[2021-04-04 18:54] LABS: Amorphous Crystals,Urine Occasional /HPF (Few); Bilirubin,Urine Negative (Negative); Blood, Urine Small mg/dL (Negative); Glucose,Urine (UA) Negative (Negative); Ketones,Urine 5 mg/dL (Negative); Mucus,Urine Occasional /LPF (Occasional); Nitrite,Urine Negative (Negative); Protein,Urine 30 MG/DL; RBC,Urine 2 /HPF (0-4); Urine Appearance CLEAR (Clear); Urine Color Yellow (Yellow); Urine Specific Gravity 1.012 (1.001-1.035); Urine Urobilinogen < 2.0 EU/DL (0.2-1.0)
[2021-04-04] MEDS ORDERED: GLUCAGON 1 MG VIAL IM PRN (20:41)
[2021-04-04] MEDS ORDERED: DEXTROSE 50% 25 GM/50 ML SYRINGE IV PRN (20:49)
[2021-04-04] MEDS ORDERED: ENOXAPARIN 40 MG/0.4 ML SYRINGE SUBCUT SCH (21:00)
[2021-04-04] MEDS: SODIUM CHLORIDE 0.9% 1,000 ML IV SCH (21:06)
[2021-04-04] MEDS: CIPROFLOXACIN INJ 400 MG/200 ML PREMIX IV SCH (21:06)
[2021-04-04] MEDS: MORPHINE 2 MG/1 ML SYRINGE IV PRN (21:07)
[2021-04-04] MEDS: metroNIDAZOLE INJ 500 MG/100 ML PREMIX IV SCH (22:27)
[2021-04-05] MEDS: MORPHINE 2 MG/1 ML SYRINGE IV PRN (02:14)
[2021-04-05] MEDS: ONDANSETRON 4 MG/2 ML VIAL IV PRN ×3 (02:15→15:40)
[2021-04-05 04:08] LABS: Basophils % 0.3 % (0.0-0.8); Eosinophils # 0.1 10*3/uL (0.0-0.87); Eosinophils % 0.9 % (0.00-10.9); Hematocrit 40.1 VOL% (42.0-52.0); Immature Granulocytes % 0.3 %; Immature Granulocytes Absolute 0.03 #; Lymphocytes # 0.9 10*3/uL (1.4-4.0); Lymphocytes % 9.6 % (21.2-54.2); Mean Corpuscular HGB Conc 32.4 GM/DL (32-36); Mean Corpuscular Volume 89.9 FL (87-102); Mean Platelet Volume 9.8 FL (9.6-12.0); Monocytes % 10.1 % (1.7-12.7); Neutrophils % 78.8 % (38.7-73.9); Platelet Count 184 T/CUMM (130-400); Red Blood Count 4.46 MC/CUMM (3.8-5.5); Red Cell Distribution Width 12.9 % (9.3-17.3)
[2021-04-05 04:29] LABS: Alanine Aminotransferase 19 U/L (16-61); Albumin 2.3 G/DL (3.4-5.0); Alkaline Phosphatase 53 U/L (45-117); Aspartate Amino Transferase 13 U/L (0-37); Bilirubin,Total < 0.39 MG/DL (0.20-1.00); Blood Urea Nitrogen 15 MG/DL (7-18); Calcium 6.2 MG/DL (8.5-10.1); Carbon Dioxide 20 MMOL/L (21-32); Estimated Glom Filtration Rate 119 ML/MIN; Glucose 95 MG/DL (74-106); HDL Cholesterol 29 MG/DL (40-60); Potassium 3.1 MMOL/L (3.5-5.1); Risk Ratio 2.97; Sodium 143 MMOL/L (136-145); Total Protein 4.6 G/DL (6.4-8.2); Triglycerides 53 MG/DL (2-150); VLDL Cholesterol 10.6 MG/DL
[2021-04-05] MEDS ORDERED: HYDROmorphone 2 MG/1 ML VIAL ONE (05:19)
[2021-04-05] MEDS: SODIUM CHLORIDE 0.9% 1,000 ML IV SCH ×4 (05:30→23:45)
[2021-04-05] MEDS: metroNIDAZOLE INJ 500 MG/100 ML PREMIX IV SCH ×3 (05:30→22:50)
[2021-04-05] MEDS: HYDROmorphone 2 MG/1 ML VIAL IV PRN ×3 (05:31→14:55)
[2021-04-05] MEDS ORDERED: PANTOPRAZOLE 40 MG VIAL IV SCH (09:00)
[2021-04-05] MEDS ORDERED: POTASSIUM CHLORIDE 20 MEQ TABLET PO ONE (10:46)
[2021-04-05] MEDS: CIPROFLOXACIN INJ 400 MG/200 ML PREMIX IV SCH (10:47)
[2021-04-05] MEDS: INSULIN REGULAR 100 UNIT/ML SUBCUT SCH ×2 (10:48→15:58)
[2021-04-05] MEDS: METOCLOPRAMIDE 10 MG/2 ML VIAL IV PRN ×2 (11:08→16:40)
[2021-04-05] MEDS ORDERED: ALUM/MAG/SIMETH/LIDO VISC 1:1 30 ML BOTTLE PO PRN (12:35)
[2021-04-05] MEDS ORDERED: PROMETHAZINE 25 MG/1 ML VIAL IM PRN (17:32)
[2021-04-05] MEDS: PREGABALIN 50 MG CAPSULE PO SCH (23:41)
[2021-04-05] MEDS: PANTOPRAZOLE 40 MG VIAL IV SCH (23:41)
[2021-04-06] MEDS: CIPROFLOXACIN INJ 400 MG/200 ML PREMIX IV SCH ×3 (00:32→20:40)
[2021-04-06] MEDS: metroNIDAZOLE INJ 500 MG/100 ML PREMIX IV SCH ×3 (05:32→22:47)
[2021-04-06 05:46] LABS: Basophils # 0.1 10*3/uL (0.0-0.2); Basophils % 0.5 % (0.0-0.8); Eosinophils # 0.2 10*3/uL (0.0-0.87); Eosinophils % 2.1 % (0.00-10.9); Hematocrit 45.6 VOL% (42.0-52.0); Hemoglobin 14.6 GM/DL (14.0-18.0); Immature Granulocytes % 0.3 %; Immature Granulocytes Absolute 0.03 #; Lymphocytes % 11.2 % (21.2-54.2); Mean Corpuscular Volume 89.9 FL (87-102); Mean Platelet Volume 10.2 FL (9.6-12.0); Monocytes % 9.7 % (1.7-12.7); Neutrophils % 76.2 % (38.7-73.9); Platelet Count 212 T/CUMM (130-400); Red Blood Count 5.07 MC/CUMM (3.8-5.5); Red Cell Distribution Width 13.1 % (9.3-17.3); White Blood Count 9.1 T/CUMM (4-12)
[2021-04-06 06:12] LABS: Calcium 8.9 MG/DL (8.5-10.1); Free T4 (Free Thyroxine) 0.96 NG/DL (0.76-1.46); Osmolality,Calculated 272.8 MOS/KG (273-304); Potassium 4.2 MMOL/L (3.5-5.1)
[2021-04-06] MEDS ORDERED: LACTATED RINGERS 1,000 ML IV SCH (08:00)
[2021-04-06] MEDS: PANTOPRAZOLE 40 MG VIAL IV SCH ×2 (08:50→20:40)
[2021-04-06] MEDS: INSULIN REGULAR 100 UNIT/ML SUBCUT SCH ×2 (10:57→16:26)
[2021-04-06] MEDS ORDERED: propofoL 200 MG/20 ML VIAL IV ONE ×2 (13:09→13:30)
[2021-04-06] MEDS ORDERED: LIDOCAINE 2% 5 ML VIAL ONE (13:09)
[2021-04-06] MEDS ORDERED: PHENYLEPHRINE 1 MG/10 ML SYRINGE IV ONE (13:30)
[2021-04-06] MEDS: SODIUM CHLORIDE 0.9% 1,000 ML IV SCH (14:34)
[2021-04-06] MEDS: CELECOXIB 200 MG CAPSULE PO SCH (14:34)
[2021-04-06] MEDS: PREGABALIN 50 MG CAPSULE PO SCH ×2 (14:34→20:39)
[2021-04-07] MEDS: metroNIDAZOLE INJ 500 MG/100 ML PREMIX IV SCH (05:46)
[2021-04-07 06:10] LABS: Basophils # 0.1 10*3/uL (0.0-0.2); Basophils % 1.2 % (0.0-0.8); Eosinophils # 0.5 10*3/uL (0.0-0.87); Eosinophils % 7.7 % (0.00-10.9); Hematocrit 43.4 VOL% (42.0-52.0); Hemoglobin 13.8 GM/DL (14.0-18.0); Immature Granulocytes % 0.3 %; Immature Granulocytes Absolute 0.02 #; Lymphocytes # 1.4 10*3/uL (1.4-4.0); Lymphocytes % 24.5 % (21.2-54.2); Mean Corpuscular HGB Conc 31.8 GM/DL (32-36); Mean Corpuscular Volume 91.6 FL (87-102); Mean Platelet Volume 10.4 FL (9.6-12.0); Monocytes % 10.3 % (1.7-12.7); Platelet Count 190 T/CUMM (130-400); Red Blood Count 4.74 MC/CUMM (3.8-5.5); Red Cell Distribution Width 13.1 % (9.3-17.3); White Blood Count 5.8 T/CUMM (4-12)
[2021-04-07 06:29] LABS: Calcium 8.7 MG/DL (8.5-10.1); Osmolality,Calculated 280.5 MOS/KG (273-304)
[2021-04-07] MEDS: SODIUM CHLORIDE 0.9% 1,000 ML IV SCH (06:38)
[2021-04-07] MEDS: INSULIN REGULAR 100 UNIT/ML SUBCUT SCH (08:08)
[2021-04-07 08:14] VITALS: BP 93/53
[2021-04-07] MEDS: CIPROFLOXACIN INJ 400 MG/200 ML PREMIX IV SCH (08:36)
[2021-04-07] MEDS: PREGABALIN 50 MG CAPSULE PO SCH (08:37)
[2021-04-07] MEDS: PANTOPRAZOLE 40 MG VIAL IV SCH (08:37)
[2021-04-07] MEDS: CELECOXIB 200 MG CAPSULE PO SCH (08:37)
== END 2021-04-07 13:05 | disposition home or self-care (01) ==
LOC: N.EDINP 14:22 → N.ED 14:22 → SUATTDRO 21:08 → N.3E 04-05 15:02
PROVIDERS: ADMIT Internal Medicine; ATTEND Phlebology

== ENCOUNTER 2021-07-04 01:27 | Inpatient (IN) ==
[2021-07-04] MEDS ORDERED: ALUM/MAG/SIMETH/LIDO VISC 1:1 30 ML BOTTLE PO STA (02:01)
[2021-07-04] MEDS ORDERED: HYDROmorphone 2 MG/1 ML VIAL IV STA (02:01)
[2021-07-04] MEDS ORDERED: PANTOPRAZOLE 40 MG VIAL IV STA (02:01)
[2021-07-04] MEDS ORDERED: ONDANSETRON 4 MG/2 ML VIAL IV STA (02:01)
[2021-07-04] MEDS ORDERED: SODIUM CHLORIDE 0.9% 500 ML IV STA ×2 (02:01→03:59)
[2021-07-04] MEDS ORDERED: METOCLOPRAMIDE 10 MG/2 ML VIAL IV STA (02:01)
[2021-07-04 03:03] LABS: Basophils % 0.2 % (0.0-0.8); Eosinophils % 0.1 % (0.00-10.9); Hematocrit 35.7 VOL% (42.0-52.0); Hemoglobin 11.6 GM/DL (14.0-18.0); Immature Granulocytes % 0.9 %; Immature Granulocytes Absolute 0.15 #; Lymphocytes # 1.6 10*3/uL (1.4-4.0); Lymphocytes % 9.6 % (21.2-54.2); Mean Corpuscular HGB Conc 32.5 GM/DL (32-36); Mean Corpuscular Volume 89.7 FL (87-102); Mean Platelet Volume 10.7 FL (9.6-12.0); Neutrophils % 81.2 % (38.7-73.9); Platelet Count 320 T/CUMM (130-400); Red Blood Count 3.98 MC/CUMM (3.8-5.5); Red Cell Distribution Width 12.5 % (9.3-17.3); White Blood Count 16.5 T/CUMM (4-12)
[2021-07-04 03:46] LABS: Alanine Aminotransferase 22 U/L (16-61); Albumin 2.7 G/DL (3.4-5.0); Alkaline Phosphatase 59 U/L (45-117); Amylase 48 U/L (25-115); Aspartate Amino Transferase 16 U/L (0-37); Bilirubin,Total < 0.39 MG/DL (0.20-1.00); Blood Urea Nitrogen 80 MG/DL (7-18); Calcium 8.7 MG/DL (8.5-10.1); Carbon Dioxide 28 MMOL/L (21-32); Glucose 174 MG/DL (74-106); Osmolality,Calculated 297.1 MOS/KG (273-304); Potassium 4.3 MMOL/L (3.5-5.1); Sodium 135 MMOL/L (136-145); Total Protein 6.5 G/DL (6.4-8.2)
[2021-07-04 03:47] LABS: Estimated Glom Filtration Rate 0 ML/MIN
[2021-07-04] MEDS ORDERED: PIPERACILLIN/TAZOBACTAM 3,375 MG in SODIUM CHLORIDE 0.9% 100 ML IV STA (04:18)
[2021-07-04 04:19] LABS: Mucus,Urine Occasional /LPF (Occasional); RBC,Urine 1 /HPF (0-4)
[2021-07-04 04:20] LABS: Bilirubin,Urine Negative (Negative); Blood, Urine Negative (Negative); Glucose,Urine (UA) Negative (Negative); Ketones,Urine Negative (Negative); Nitrite,Urine Negative (Negative); Protein,Urine Negative; Urine Appearance Clear (Clear); Urine Color Yellow (Yellow); Urine Specific Gravity 1.015 (1.001-1.035); Urine Urobilinogen 0.2 EU/DL (<2.0)
[2021-07-04] MEDS ORDERED: ACETAMINOPHEN 325 MG TABLET PO PRN (04:37)
[2021-07-04] MEDS ORDERED: ONDANSETRON 4 MG/2 ML VIAL IV PRN (04:37)
[2021-07-04] MEDS ORDERED: GLUCAGON 1 MG VIAL IM PRN (04:37)
[2021-07-04] MEDS ORDERED: DEXTROSE 10% 250 ML BAG IV PRN (04:46)
[2021-07-04] MEDS: SODIUM CHLORIDE 0.9% 1,000 ML IV SCH ×3 (05:15→22:55)
[2021-07-04] MEDS ORDERED: PIPERACILLIN/TAZOBACTAM 3,375 MG in SODIUM CHLORIDE 0.9% 100 ML IV SCH (07:00)
[2021-07-04 07:02] LABS: INR 1.1; PT Patient Result 12.4 SECS (10.5-12.0); Partial Thromboplastin Time 24.8 SECS (23.8-32.1)
[2021-07-04] MEDS: INSULIN REGULAR 100 UNIT/ML SUBCUT SCH ×4 (07:39→22:58)
[2021-07-04] MEDS: PANTOPRAZOLE 40 MG VIAL IV SCH ×2 (09:00→22:57)
[2021-07-04] MEDS: cefTRIAXone 1,000 MG in SODIUM CHLORIDE 0.9% 100 ML IV SCH (11:17)
[2021-07-04] MEDS: metroNIDAZOLE INJ 500 MG/100 ML PREMIX IV SCH ×2 (11:53→22:54)
[2021-07-05] MEDS: metroNIDAZOLE INJ 500 MG/100 ML PREMIX IV SCH ×3 (05:51→20:53)
[2021-07-05 06:35] LABS: Basophils # 0.1 10*3/uL (0.0-0.2); Basophils % 0.8 % (0.0-0.8); Eosinophils # 0.1 10*3/uL (0.0-0.87); Eosinophils % 0.7 % (0.00-10.9); Hemoglobin 6.8 GM/DL (14.0-18.0); Immature Granulocytes % 5.2 %; Immature Granulocytes Absolute 0.64 #; Lymphocytes # 2.4 10*3/uL (1.4-4.0); Lymphocytes % 19.3 % (21.2-54.2); Mean Corpuscular HGB Conc 32.4 GM/DL (32-36); Mean Corpuscular Volume 91.7 FL (87-102); Platelet Count 271 T/CUMM (130-400); Red Blood Count 2.29 MC/CUMM (3.8-5.5); Red Cell Distribution Width 12.8 % (9.3-17.3); White Blood Count 12.3 T/CUMM (4-12)
[2021-07-05 06:55] LABS: Albumin 2.2 G/DL (3.4-5.0); Bilirubin,Total 0.4 MG/DL (0.20-1.00); Calcium 7.7 MG/DL (8.5-10.1); Osmolality,Calculated 286.5 MOS/KG (273-304); Potassium 3.8 MMOL/L (3.5-5.1); Total Protein 4.9 G/DL (6.4-8.2)
[2021-07-05 06:58] LABS: Band Neutrophils 2 % (0-10); Lymphocytes 17 % (20-55); Platelet Estimate Adequate; Segmented Neutrophils 67 % (50-85); Total Cells Counted 100
[2021-07-05 06:59] LABS: Hypochromia 1+; Microcytosis 1+
[2021-07-05] MEDS: INSULIN REGULAR 100 UNIT/ML SUBCUT SCH ×4 (07:30→20:27)
[2021-07-05] MEDS ORDERED: SODIUM CHLORIDE 0.9% 1,000 ML IV PRN ×2 (08:07→10:32)
[2021-07-05] MEDS: PANTOPRAZOLE 40 MG VIAL IV SCH (09:20)
[2021-07-05] MEDS ORDERED: PHENOL 1.4% THROAT SPRAY 177 ML BOTTLE PO PRN (09:26)
[2021-07-05] MEDS: cefTRIAXone 1,000 MG in SODIUM CHLORIDE 0.9% 100 ML IV SCH (10:25)
[2021-07-05 10:47] LABS: Hematocrit 19.8 VOL% (42.0-52.0)
[2021-07-05 10:56] LABS: Hemoglobin 6.3 GM/DL (14.0-18.0)
[2021-07-05] MEDS ORDERED: METOCLOPRAMIDE 10 MG/2 ML VIAL IV SCH (13:00)
[2021-07-05] MEDS: SODIUM CHLORIDE 0.9% 1,000 ML IV SCH (14:38)
[2021-07-05 19:39] LABS: % Iron Saturation 53.6 % (18-50); Ferritin 270.6 ng/mL (26-388)
[2021-07-05] MEDS: PANTOPRAZOLE INJ 200 MG in SODIUM CHLORIDE 0.9% 250 ML IV SCH (20:53)
[2021-07-05] MEDS: METOCLOPRAMIDE 10 MG/2 ML VIAL IV SCH (20:54)
[2021-07-05 22:03] LABS: Basophils # 0.1 10*3/uL (0.0-0.2); Basophils % 0.6 % (0.0-0.8); Eosinophils # 0.2 10*3/uL (0.0-0.87); Eosinophils % 1.6 % (0.00-10.9); Hematocrit 24.9 VOL% (42.0-52.0); Hemoglobin 8.1 GM/DL (14.0-18.0); Immature Granulocytes % 7.3 %; Lymphocytes # 2.3 10*3/uL (1.4-4.0); Lymphocytes % 21.2 % (21.2-54.2); Mean Corpuscular HGB Conc 32.5 GM/DL (32-36); Mean Corpuscular Volume 93.3 FL (87-102); Mean Platelet Volume 10.1 FL (9.6-12.0); Monocytes % 11.2 % (1.7-12.7); NRBC # 0.05 10*3/uL; Neutrophils % 58.1 % (38.7-73.9); Platelet Count 175 T/CUMM (130-400); Red Blood Count 2.67 MC/CUMM (3.8-5.5); Red Cell Distribution Width 13.2 % (9.3-17.3)
[2021-07-05 22:27] LABS: Folate 8.43 NG/ML (5.38-24.0); Vitamin B12 1186 PG/ML (211-911)
[2021-07-05 22:52] LABS: Eosinophils 1 % (0-10); Lymphocytes 25 % (20-55); Nucleated Red Blood Cells 1 (0-5); Platelet Estimate Adequate; Segmented Neutrophils 62 % (50-85); Total Cells Counted 100
[2021-07-05] MEDS ORDERED: ESTROVEN PO PRN (23:29)
[2021-07-06] MEDS: SODIUM CHLORIDE 0.9% 1,000 ML IV SCH ×4 (01:02→16:21)
[2021-07-06 05:22] LABS: Basophils # 0.1 10*3/uL (0.0-0.2); Basophils % 0.6 % (0.0-0.8); Eosinophils # 0.2 10*3/uL (0.0-0.87); Eosinophils % 2.1 % (0.00-10.9); Hematocrit 21.1 VOL% (42.0-52.0); Immature Granulocytes % 5.6 %; Immature Granulocytes Absolute 0.57 #; Lymphocytes % 19.5 % (21.2-54.2); Mean Corpuscular HGB Conc 33.2 GM/DL (32-36); Mean Corpuscular Volume 90.9 FL (87-102); Monocytes % 11.3 % (1.7-12.7); NRBC # 0.05 10*3/uL; Neutrophils % 60.9 % (38.7-73.9); Platelet Count 204 T/CUMM (130-400); Red Blood Count 2.32 MC/CUMM (3.8-5.5); Red Cell Distribution Width 13.2 % (9.3-17.3); White Blood Count 10.1 T/CUMM (4-12)
[2021-07-06] MEDS: metroNIDAZOLE INJ 500 MG/100 ML PREMIX IV SCH ×3 (05:33→21:23)
[2021-07-06 05:52] LABS: Band Neutrophils 1 % (0-10); Eosinophils 3 % (0-10); Lymphocytes 17 % (20-55); Microcytosis 1+; Segmented Neutrophils 71 % (50-85); Total Cells Counted 100
[2021-07-06 05:53] LABS: Albumin 1.8 G/DL (3.4-5.0); Bilirubin,Total 0.4 MG/DL (0.20-1.00); Calcium 7.2 MG/DL (8.5-10.1); Osmolality,Calculated 283.3 MOS/KG (273-304); Platelet Estimate Normal; Potassium 3.6 MMOL/L (3.5-5.1); Total Protein 4.1 G/DL (6.4-8.2)
[2021-07-06] MEDS ORDERED: SODIUM CHLORIDE 0.9% 1,000 ML IV PRN (06:28)
[2021-07-06 06:39] LABS: Sedimentation Rate-Westergren 13 MM/HR (0-20)
[2021-07-06] MEDS ORDERED: LACTATED RINGERS 1,000 ML IV SCH ×2 (08:00→12:02)
[2021-07-06] MEDS: METOCLOPRAMIDE 10 MG/2 ML VIAL IV SCH ×2 (09:16→21:23)
[2021-07-06] MEDS: INSULIN REGULAR 100 UNIT/ML SUBCUT SCH ×4 (09:17→21:23)
[2021-07-06 09:30] LABS: Hemoglobin A1 (Alkaline) 97.3 % (96.5-98.5); Hemoglobin A2 (Alkaline) 2.7 % (1.5-3.5)
[2021-07-06] MEDS: cefTRIAXone 1,000 MG in SODIUM CHLORIDE 0.9% 100 ML IV SCH (11:12)
[2021-07-06] MEDS ORDERED: LIDOCAINE 2% 5 ML VIAL ONE ×2 (12:51→13:06)
[2021-07-06] MEDS ORDERED: propofoL 200 MG/20 ML VIAL IV ONE ×3 (12:51→13:20)
[2021-07-06] MEDS ORDERED: PHENYLEPHRINE 1 MG/10 ML SYRINGE IV ONE (13:08)
[2021-07-06] MEDS ORDERED: PANTOPRAZOLE 40 MG VIAL IV ONE (16:00)
[2021-07-06] MEDS: PANTOPRAZOLE INJ 200 MG in SODIUM CHLORIDE 0.9% 250 ML IV SCH (23:38)
[2021-07-07] MEDS: metroNIDAZOLE INJ 500 MG/100 ML PREMIX IV SCH ×3 (05:14→20:53)
[2021-07-07 05:41] LABS: Basophils # 0.1 10*3/uL (0.0-0.2); Basophils % 0.8 % (0.0-0.8); Eosinophils # 0.4 10*3/uL (0.0-0.87); Eosinophils % 4.4 % (0.00-10.9); Hematocrit 26.5 VOL% (42.0-52.0); Immature Granulocytes % 5.1 %; Immature Granulocytes Absolute 0.48 #; Lymphocytes # 2.1 10*3/uL (1.4-4.0); Lymphocytes % 22.5 % (21.2-54.2); Mean Corpuscular HGB Conc 33.2 GM/DL (32-36); Mean Corpuscular Volume 88.3 FL (87-102); Mean Platelet Volume 9.5 FL (9.6-12.0); Monocytes % 9.9 % (1.7-12.7); NRBC # 0.06 10*3/uL; Neutrophils % 57.3 % (38.7-73.9); Platelet Count 265 T/CUMM (130-400); Red Cell Distribution Width 14.5 % (9.3-17.3); White Blood Count 9.5 T/CUMM (4-12)
[2021-07-07 05:44] LABS: Hemoglobin 8.8 GM/DL (14.0-18.0)
[2021-07-07 05:59] LABS: Alanine Aminotransferase 14 U/L (16-61); Albumin 2.1 G/DL (3.4-5.0); Alkaline Phosphatase 39 U/L (45-117); Aspartate Amino Transferase 14 U/L (0-37); Bilirubin,Total < 0.39 MG/DL (0.20-1.00); Blood Urea Nitrogen 11 MG/DL (7-18); Calcium 7.5 MG/DL (8.5-10.1); Carbon Dioxide 24 MMOL/L (21-32); Estimated Glom Filtration Rate 109 ML/MIN; Glucose 86 MG/DL (74-106); Osmolality,Calculated 278.3 MOS/KG (273-304); Potassium 3.3 MMOL/L (3.5-5.1); Sodium 141 MMOL/L (136-145); Total Protein 4.5 G/DL (6.4-8.2)
[2021-07-07 06:20] LABS: Anisocytosis 2+; Band Neutrophils 5 % (0-10); Eosinophils 5 % (0-10); Lymphocytes 23 % (20-55); Platelet Estimate Normal; Polychromasia Slight; Segmented Neutrophils 61 % (50-85); Total Cells Counted 100
[2021-07-07] MEDS: INSULIN REGULAR 100 UNIT/ML SUBCUT SCH (09:13)
[2021-07-07] MEDS: SODIUM CHLORIDE 0.9% 1,000 ML IV SCH (09:14)
[2021-07-07] MEDS: METOCLOPRAMIDE 10 MG/2 ML VIAL IV SCH ×2 (09:14→20:54)
[2021-07-07] MEDS: POTASSIUM CHLORIDE 20 MEQ TABLET PO SCH ×2 (09:14→11:21)
[2021-07-07] MEDS: cefTRIAXone 1,000 MG in SODIUM CHLORIDE 0.9% 100 ML IV SCH (11:23)
[2021-07-07] MEDS: PANTOPRAZOLE INJ 200 MG in SODIUM CHLORIDE 0.9% 250 ML IV SCH (23:58)
[2021-07-08] MEDS: SODIUM CHLORIDE 0.9% 1,000 ML IV SCH ×2 (01:05→17:49)
[2021-07-08] MEDS: metroNIDAZOLE INJ 500 MG/100 ML PREMIX IV SCH ×3 (05:20→20:55)
[2021-07-08 06:33] LABS: Basophils # 0.1 10*3/uL (0.0-0.2); Basophils % 0.8 % (0.0-0.8); Eosinophils # 0.5 10*3/uL (0.0-0.87); Eosinophils % 5.6 % (0.00-10.9); Hematocrit 25.2 VOL% (42.0-52.0); Hemoglobin 8.4 GM/DL (14.0-18.0); Immature Granulocytes % 2.2 %; Immature Granulocytes Absolute 0.18 #; Lymphocytes # 1.7 10*3/uL (1.4-4.0); Lymphocytes % 20.2 % (21.2-54.2); Mean Corpuscular HGB Conc 33.3 GM/DL (32-36); Mean Corpuscular Volume 88.4 FL (87-102); Mean Platelet Volume 9.6 FL (9.6-12.0); Monocytes % 8.4 % (1.7-12.7); NRBC # 0.02 10*3/uL; Neutrophils % 62.8 % (38.7-73.9); Platelet Count 288 T/CUMM (130-400); Red Blood Count 2.85 MC/CUMM (3.8-5.5); Red Cell Distribution Width 15.1 % (9.3-17.3); White Blood Count 8.3 T/CUMM (4-12)
[2021-07-08 06:50] LABS: Bilirubin,Total 1.5 MG/DL (0.20-1.00); Calcium 7.6 MG/DL (8.5-10.1); Osmolality,Calculated 280.1 MOS/KG (273-304); Potassium 3.7 MMOL/L (3.5-5.1); Total Protein 4.3 G/DL (6.4-8.2)
[2021-07-08] MEDS: METOCLOPRAMIDE 10 MG/2 ML VIAL IV SCH ×2 (08:53→20:55)
[2021-07-08] MEDS: cefTRIAXone 1,000 MG in SODIUM CHLORIDE 0.9% 100 ML IV SCH (10:57)
[2021-07-09] MEDS: metroNIDAZOLE INJ 500 MG/100 ML PREMIX IV SCH (05:23)
[2021-07-09 06:03] LABS: Basophils # 0.1 10*3/uL (0.0-0.2); Basophils % 0.6 % (0.0-0.8); Eosinophils # 0.5 10*3/uL (0.0-0.87); Eosinophils % 5.7 % (0.00-10.9); Hematocrit 24.1 VOL% (42.0-52.0); Immature Granulocytes % 1.9 %; Immature Granulocytes Absolute 0.16 #; Lymphocytes # 1.5 10*3/uL (1.4-4.0); Lymphocytes % 17.4 % (21.2-54.2); Mean Corpuscular HGB Conc 33.2 GM/DL (32-36); Mean Corpuscular Volume 90.3 FL (87-102); Mean Platelet Volume 10.1 FL (9.6-12.0); Monocytes % 9.1 % (1.7-12.7); NRBC # 0.03 10*3/uL; Neutrophils % 65.3 % (38.7-73.9); Platelet Count 261 T/CUMM (130-400); Red Blood Count 2.67 MC/CUMM (3.8-5.5); Red Cell Distribution Width 16.3 % (9.3-17.3); White Blood Count 8.3 T/CUMM (4-12)
[2021-07-09 06:16] LABS: Albumin 1.9 G/DL (3.4-5.0); Bilirubin,Total 0.5 MG/DL (0.20-1.00); Calcium 7.5 MG/DL (8.5-10.1); Osmolality,Calculated 278.1 MOS/KG (273-304); Potassium 3.7 MMOL/L (3.5-5.1); Total Protein 4.2 G/DL (6.4-8.2)
[2021-07-09] MEDS ORDERED: PANTOPRAZOLE 40 MG VIAL IV SCH (09:00)
[2021-07-09] MEDS: METOCLOPRAMIDE 10 MG/2 ML VIAL IV SCH (09:19)
[2021-07-09 10:21] LABS: Hematocrit 25.6 VOL% (42.0-52.0); Hemoglobin 8.4 GM/DL (14.0-18.0)
[2021-07-09 11:54] VITALS: BP 89/43
[2021-07-09] MEDS: cefTRIAXone 1,000 MG in SODIUM CHLORIDE 0.9% 100 ML IV SCH (12:52)
== END 2021-07-09 14:08 | disposition home or self-care (01) | DRG 378 ==
LOC: EDBD → EDUNIT# → N.EDINP 01:27 → N.ED 01:27 → N.5E 15:15 → SUATTDRO 07-05 13:31
PROVIDERS: ADMIT Internal Medicine; ATTEND Internal Medicine

== ENCOUNTER 2022-05-13 17:22 | Inpatient (IN) ==
[2022-05-13] MEDS ORDERED: MORPHINE 2 MG/1 ML SYRINGE IV STA (19:05)
[2022-05-13] MEDS ORDERED: NITROGLYCERIN 2% OINT 1 INCH/GM PACK TOP STA (19:05)
[2022-05-13] MEDS ORDERED: ASPIRIN 325 MG TABLET PO STA (19:05)
[2022-05-13] MEDS ORDERED: ONDANSETRON 4 MG/2 ML VIAL IV STA (19:05)
[2022-05-13 19:10] LABS: Basophils # 0.1 10*3/uL (0.0-0.2); Basophils % 0.5 % (0.0-0.8); Eosinophils # 0.1 10*3/uL (0.0-0.87); Hematocrit 51.7 VOL% (42.0-52.0); Hemoglobin 17.4 GM/DL (14.0-18.0); Immature Granulocytes % 0.4 %; Immature Granulocytes Absolute 0.05 #; Lymphocytes # 1.7 10*3/uL (1.4-4.0); Lymphocytes % 13.4 % (21.2-54.2); Mean Corpuscular HGB Conc 33.7 GM/DL (32-36); Mean Corpuscular Volume 90.2 FL (87-102); Mean Platelet Volume 11.3 FL (9.6-12.0); Monocytes # 1.1 10*3/uL (0.11-0.8); Monocytes % 8.3 % (1.7-12.7); Neutrophils % 76.4 % (38.7-73.9); Platelet Count 252 T/CUMM (130-400); Red Blood Count 5.73 MC/CUMM (3.8-5.5); White Blood Count 12.9 T/CUMM (4-12)
[2022-05-13 20:09] LABS: Albumin 4.5 G/DL (3.4-5.0); Calcium 10.2 MG/DL (8.5-10.1); Potassium 4.3 MMOL/L (3.5-5.1)
[2022-05-13 20:10] LABS: Osmolality,Calculated 289.3 MOS/KG (273-304)
[2022-05-13 20:15] LABS: Bilirubin,Total 0.5 MG/DL (0.20-1.00); Total Protein 7.9 G/DL (6.4-8.2)
[2022-05-13] MEDS ORDERED: PROMETHAZINE 25 MG/1 ML VIAL IM STA (20:41)
[2022-05-13] MEDS ORDERED: METOCLOPRAMIDE 10 MG/2 ML VIAL IV STA (22:15)
[2022-05-14] MEDS ORDERED: ONDANSETRON 4 MG/2 ML VIAL IV PRN (00:03)
[2022-05-14] MEDS ORDERED: guaiFENesin/DM ER 600-30 MG TABLET PO PRN (00:03)
[2022-05-14] MEDS ORDERED: NICOTINE 21 MG/24 HR PATCH TRANSDERM PRN (00:03)
[2022-05-14] MEDS ORDERED: PROMETHAZINE 25 MG/1 ML VIAL IM PRN (00:03)
[2022-05-14] MEDS ORDERED: diphenhydrAMINE CAP 25 MG CAPSULE PO PRN (00:03)
[2022-05-14] MEDS ORDERED: hydrALAZINE 20 MG/1 ML VIAL IV PRN (00:03)
[2022-05-14] MEDS ORDERED: ZALEPLON 5 MG CAPSULE PO PRN (00:03)
[2022-05-14] MEDS ORDERED: ACETAMINOPHEN 325 MG TABLET PO PRN (00:03)
[2022-05-14] MEDS: MORPHINE 2 MG/1 ML SYRINGE IV PRN ×2 (03:55→08:44)
[2022-05-14 04:42] LABS: Basophils % 0.2 % (0.0-0.8); Hematocrit 52.8 VOL% (42.0-52.0); Hemoglobin 17.1 GM/DL (14.0-18.0); Immature Granulocytes % 0.5 %; Immature Granulocytes Absolute 0.08 #; Lymphocytes # 1.5 10*3/uL (1.4-4.0); Lymphocytes % 9.1 % (21.2-54.2); Mean Corpuscular HGB Conc 32.4 GM/DL (32-36); Mean Corpuscular Volume 91.7 FL (87-102); Mean Platelet Volume 10.7 FL (9.6-12.0); Monocytes # 0.9 10*3/uL (0.11-0.8); Monocytes % 5.4 % (1.7-12.7); Neutrophils % 84.8 % (38.7-73.9); Platelet Count 324 T/CUMM (130-400); Red Blood Count 5.76 MC/CUMM (3.8-5.5); Red Cell Distribution Width 13.2 % (9.3-17.3); White Blood Count 16.2 T/CUMM (4-12)
[2022-05-14 05:06] LABS: Calcium 10.1 MG/DL (8.5-10.1); Osmolality,Calculated 295.5 MOS/KG (273-304); Potassium 3.9 MMOL/L (3.5-5.1)
[2022-05-14] MEDS: INSULIN LISPRO 100 UNIT/ML SUBCUT SCH ×4 (06:12→23:36)
[2022-05-14] MEDS: PIPERACILLIN/TAZOBACTAM 3,375 MG in SODIUM CHLORIDE 0.9% 100 ML IV SCH ×2 (08:45→16:18)
[2022-05-14] MEDS: HEPARIN 5,000 UNIT/1 ML VIAL SUBCUT SCH (08:45)
[2022-05-14] MEDS ORDERED: ROSUVASTATIN 10 MG TABLET PO SCH (09:00)
[2022-05-14] MEDS ORDERED: HYDROmorphone 1 MG/1 ML SYRINGE IV ONE (11:04)
[2022-05-14] MEDS ORDERED: CALCIUM CHLORIDE 1,000 MG/10 ML VIAL IV ONE ×2 (11:49→13:01)
[2022-05-14] MEDS ORDERED: HEPARIN/NACL 0.9% 2 UNITS/ML 1,000 UNIT/500 ML BAG IV ONE (11:49)
[2022-05-14] MEDS ORDERED: SODIUM BICARBONATE 50 MEQ/50 ML VIAL IV ONE ×2 (11:49→13:00)
[2022-05-14] MEDS ORDERED: PHENYLEPHRINE DRIP 20 MG/250 ML PREMIX IV ONE (11:50)
[2022-05-14] MEDS ORDERED: ROCURONIUM 50 MG/5 ML VIAL IV ONE (11:54)
[2022-05-14] MEDS ORDERED: fentaNYL 100 MCG/2 ML VIAL ONE (11:54)
[2022-05-14] MEDS ORDERED: propofoL 200 MG/20 ML VIAL IV ONE (11:54)
[2022-05-14] MEDS ORDERED: ONDANSETRON 4 MG/2 ML VIAL ONE (11:54)
[2022-05-14] MEDS ORDERED: LIDOCAINE 2% 5 ML VIAL ONE (11:54)
[2022-05-14] MEDS ORDERED: SUCCINYLCHOLINE 200 MG/10 ML VIAL ONE (11:54)
[2022-05-14] MEDS ORDERED: SEVOFLURANE 1 UNIT/15 MINUTE INH ONE (12:11)
[2022-05-14] MEDS ORDERED: ESMOLOL 100 MG/10 ML VIAL IV ONE (12:16)
[2022-05-14] MEDS ORDERED: MIDAZOLAM 2 MG/2 ML VIAL ONE ×3 (12:20→13:24)
[2022-05-14 13:01] LABS: Arterial Bicarbonate iSTAT 17.5 MMOL/L (20-26); Arterial pH iSTAT 7.225 (7.35-7.45)
[2022-05-14] MEDS ORDERED: ALBUTEROL/IPRATROPIUM 3 ML NEB RESP TX PRN (13:59)
[2022-05-14] MEDS ORDERED: LACTATED RINGERS 500 ML IV ONE (14:15)
[2022-05-14] MEDS: HYDROmorphone 1 MG/1 ML SYRINGE IV PRN ×2 (14:24→18:15)
[2022-05-14 14:38] LABS: Arterial Base Excess iSTAT -2 MMOL/L (-2.5-2.5); Arterial Bicarbonate iSTAT 22.5 MMOL/L (20-26); Arterial O2 Saturation iSTAT 99 % (95-100); Arterial PCO2 iSTAT 36 MM HG (35-48); Arterial PO2 iSTAT 154 MM HG (80-95); Arterial Total CO2 iSTAT 24 MMO/L (23-27); Arterial pH iSTAT 7.399 (7.35-7.45)
[2022-05-14] MEDS: LACTATED RINGERS 1,000 ML IV SCH ×2 (14:46→21:37)
[2022-05-14] MEDS ORDERED: LACTATED RINGERS 1,000 ML IV ONE ×4 (15:04→23:32)
[2022-05-14] MEDS ORDERED: ALBUMIN 5% 25 GM/500 ML VIAL IV ONE (16:06)
[2022-05-14] MEDS: VANCOMYCIN INJ 1,250 MG in SODIUM CHLORIDE 0.9% 250 ML IV SCH (16:32)
[2022-05-14] MEDS ORDERED: LACTATED RINGERS 1,000 ML IV SCH (17:20)
[2022-05-14] MEDS: PANTOPRAZOLE 40 MG VIAL IV SCH (21:00)
[2022-05-14] MEDS ORDERED: VANCOMYCIN INJ 1,250 MG in SODIUM CHLORIDE 0.9% 250 ML IV ONE (21:59)
[2022-05-14 23:26] LABS: Arterial Bicarbonate iSTAT 25.4 MMOL/L (20-26); Arterial pH iSTAT 7.433 (7.35-7.45)
[2022-05-15] MEDS: PIPERACILLIN/TAZOBACTAM 3,375 MG in SODIUM CHLORIDE 0.9% 100 ML IV SCH ×3 (00:32→16:53)
[2022-05-15] MEDS: LACTATED RINGERS 1,000 ML IV SCH ×6 (02:00→18:05)
[2022-05-15] MEDS ORDERED: LACTATED RINGERS 1,000 ML IV ONE (02:09)
[2022-05-15 03:36] LABS: Arterial Bicarbonate iSTAT 25.7 MMOL/L (20-26); Arterial pH iSTAT 7.438 (7.35-7.45)
[2022-05-15 03:39] LABS: Basophils # 0.1 10*3/uL (0.0-0.2); Basophils % 0.7 % (0.0-0.8); Eosinophils % 0.1 % (0.00-10.9); Hematocrit 41.5 VOL% (42.0-52.0); Hemoglobin 13.7 GM/DL (14.0-18.0); Immature Granulocytes % 0.4 %; Immature Granulocytes Absolute 0.03 #; Lymphocytes # 1.3 10*3/uL (1.4-4.0); Lymphocytes % 17.6 % (21.2-54.2); Mean Corpuscular Volume 91.8 FL (87-102); Mean Platelet Volume 10.6 FL (9.6-12.0); Monocytes # 0.7 10*3/uL (0.11-0.8); Monocytes % 9.7 % (1.7-12.7); Neutrophils % 71.5 % (38.7-73.9); Platelet Count 150 T/CUMM (130-400); Red Blood Count 4.52 MC/CUMM (3.8-5.5); Red Cell Distribution Width 13.3 % (9.3-17.3); White Blood Count 7.5 T/CUMM (4-12)
[2022-05-15 03:56] LABS: Albumin 2.2 G/DL (3.4-5.0); Bilirubin,Total 0.9 MG/DL (0.20-1.00); Calcium 8.6 MG/DL (8.5-10.1); Osmolality,Calculated 300.7 MOS/KG (273-304); Potassium 4.5 MMOL/L (3.5-5.1); Total Protein 4.3 G/DL (6.4-8.2)
[2022-05-15 04:03] LABS: Band Neutrophils 5 % (0-10); Eosinophils 1 % (0-10); Lymphocytes 21 % (20-55); Total Cells Counted 100
[2022-05-15 04:04] LABS: Hypochromia Slight; Microcytosis Slight
[2022-05-15 04:05] LABS: Platelet Estimate Adequate
[2022-05-15] MEDS: INSULIN LISPRO 100 UNIT/ML SUBCUT SCH ×3 (05:25→18:05)
[2022-05-15] MEDS ORDERED: NOREPINEPHRINE DRIP 8 MG/250 ML PREMIX IV PRN (07:27)
[2022-05-15] MEDS: PANTOPRAZOLE 40 MG VIAL IV SCH ×2 (08:13→20:14)
[2022-05-15] MEDS ORDERED: PANTOPRAZOLE 40 MG VIAL IV SCH (09:00)
[2022-05-15] MEDS: VANCOMYCIN INJ 1,250 MG in SODIUM CHLORIDE 0.9% 250 ML IV SCH (10:01)
[2022-05-15] MEDS: HYDROmorphone 1 MG/1 ML SYRINGE IV PRN ×3 (12:31→23:30)
[2022-05-16] MEDS: LACTATED RINGERS 1,000 ML IV SCH ×5 (00:05→20:41)
[2022-05-16] MEDS: INSULIN LISPRO 100 UNIT/ML SUBCUT SCH ×5 (00:05→23:32)
[2022-05-16] MEDS: PIPERACILLIN/TAZOBACTAM 3,375 MG in SODIUM CHLORIDE 0.9% 100 ML IV SCH ×3 (00:52→16:34)
[2022-05-16 03:59] LABS: Arterial Bicarbonate iSTAT 25.8 MMOL/L (20-26); Arterial pH iSTAT 7.447 (7.35-7.45)
[2022-05-16 04:05] LABS: Basophils # 0.1 10*3/uL (0.0-0.2); Basophils % 0.4 % (0.0-0.8); Eosinophils % 0.3 % (0.00-10.9); Hematocrit 34.9 VOL% (42.0-52.0); Hemoglobin 11.5 GM/DL (14.0-18.0); Immature Granulocytes % 1.2 %; Immature Granulocytes Absolute 0.14 #; Lymphocytes # 1.1 10*3/uL (1.4-4.0); Lymphocytes % 9.4 % (21.2-54.2); Mean Corpuscular Volume 91.8 FL (87-102); Mean Platelet Volume 10.5 FL (9.6-12.0); Monocytes # 0.7 10*3/uL (0.11-0.8); Monocytes % 5.5 % (1.7-12.7); Neutrophils % 83.2 % (38.7-73.9); Platelet Count 145 T/CUMM (130-400); Red Cell Distribution Width 13.3 % (9.3-17.3)
[2022-05-16] MEDS: VANCOMYCIN INJ 1,250 MG in SODIUM CHLORIDE 0.9% 250 ML IV SCH (04:14)
[2022-05-16] MEDS: HYDROmorphone 1 MG/1 ML SYRINGE IV PRN ×3 (04:15→23:28)
[2022-05-16 04:17] LABS: Calcium 8.5 MG/DL (8.5-10.1); Osmolality,Calculated 295.8 MOS/KG (273-304); Potassium 3.8 MMOL/L (3.5-5.1)
[2022-05-16 04:23] LABS: Band Neutrophils 3 % (0-10); Lymphocytes 7 % (20-55); Platelet Estimate Adequate; Total Cells Counted 100
[2022-05-16 04:24] LABS: Hypochromia Slight; Microcytosis Slight
[2022-05-16] MEDS ORDERED: MAGNESIUM SULF RIDER 2 GM/50 ML PREMIX IV PRN (04:28)
[2022-05-16] MEDS ORDERED: POTASSIUM CHLORIDE RIDER 10 MEQ/100 ML PREMIX IV PRN (04:28)
[2022-05-16] MEDS ORDERED: MAGNESIUM SULF RIDER 4 GM/100 ML PREMIX IV PRN (04:28)
[2022-05-16] MEDS: POTASSIUM CHLORIDE RIDER 20 MEQ/100 ML PREMIX IV PRN (05:22)
[2022-05-16] MEDS: PANTOPRAZOLE 40 MG VIAL IV SCH ×2 (08:02→20:29)
[2022-05-17] MEDS: PIPERACILLIN/TAZOBACTAM 3,375 MG in SODIUM CHLORIDE 0.9% 100 ML IV SCH ×3 (00:02→18:29)
[2022-05-17 04:10] LABS: Arterial Base Excess iSTAT 1 MMOL/L (-2.5-2.5); Arterial Bicarbonate iSTAT 24.3 MMOL/L (20-26); Arterial O2 Saturation iSTAT 99 % (95-100); Arterial PCO2 iSTAT 35 MM HG (35-48); Arterial PO2 iSTAT 138 MM HG (80-95); Arterial Total CO2 iSTAT 25 MMO/L (23-27); Arterial pH iSTAT 7.452 (7.35-7.45)
[2022-05-17 04:23] LABS: Basophils # 0.1 10*3/uL (0.0-0.2); Basophils % 0.4 % (0.0-0.8); Eosinophils # 0.6 10*3/uL (0.0-0.87); Eosinophils % 4.6 % (0.00-10.9); Hemoglobin 10.7 GM/DL (14.0-18.0); Immature Granulocytes % 0.7 %; Immature Granulocytes Absolute 0.09 #; Lymphocytes # 1.1 10*3/uL (1.4-4.0); Lymphocytes % 8.1 % (21.2-54.2); Mean Corpuscular HGB Conc 32.4 GM/DL (32-36); Mean Corpuscular Volume 92.2 FL (87-102); Mean Platelet Volume 10.9 FL (9.6-12.0); Monocytes # 0.8 10*3/uL (0.11-0.8); Monocytes % 6.2 % (1.7-12.7); Platelet Count 137 T/CUMM (130-400); Red Blood Count 3.58 MC/CUMM (3.8-5.5); Red Cell Distribution Width 13.2 % (9.3-17.3); White Blood Count 13.7 T/CUMM (4-12)
[2022-05-17 04:27] LABS: Osmolality,Calculated 297.4 MOS/KG (273-304); Potassium 3.3 MMOL/L (3.5-5.1)
[2022-05-17] MEDS: POTASSIUM CHLORIDE RIDER 20 MEQ/100 ML PREMIX IV PRN ×2 (04:50→09:57)
[2022-05-17] MEDS: HYDROmorphone 1 MG/1 ML SYRINGE IV PRN ×5 (04:50→22:50)
[2022-05-17] MEDS: LACTATED RINGERS 1,000 ML IV SCH ×2 (04:51→10:00)
[2022-05-17] MEDS: INSULIN LISPRO 100 UNIT/ML SUBCUT SCH ×2 (05:06→12:59)
[2022-05-17] MEDS: POTASSIUM BICARB EFFERVESCENT 20 MEQ TAB.EFF PO SCH ×2 (09:57→20:39)
[2022-05-17] MEDS: PANTOPRAZOLE 40 MG VIAL IV SCH ×2 (09:58→20:02)
[2022-05-17] MEDS ORDERED: HEPARIN/NACL 0.9% 2 UNITS/ML 1,000 UNIT/500 ML BAG IV ONE (19:40)
[2022-05-18] MEDS: PIPERACILLIN/TAZOBACTAM 3,375 MG in SODIUM CHLORIDE 0.9% 100 ML IV SCH ×2 (01:23→09:29)
[2022-05-18] MEDS: HYDROmorphone 1 MG/1 ML SYRINGE IV PRN ×3 (02:00→21:13)
[2022-05-18 04:32] LABS: ABG Base Excess 0.2 MMOL/L (-2.5-2.5); ABG HCO3 24.6 MMOL/L (20-26); ABG Oxygen Saturation 96.9 % (95-100); ABG PCO2 37.5 MM HG (35-48); ABG PH 7.422 (7.35-7.45); ABG PO2 81.3 MM HG (80-95); ABG TCO2 22.1 MMOL/L (23-27)
[2022-05-18 04:36] LABS: Basophils # 0.1 10*3/uL (0.0-0.2); Basophils % 0.4 % (0.0-0.8); Eosinophils # 0.9 10*3/uL (0.0-0.87); Eosinophils % 7.8 % (0.00-10.9); Hematocrit 31.7 VOL% (42.0-52.0); Hemoglobin 10.2 GM/DL (14.0-18.0); Immature Granulocytes % 1.3 %; Immature Granulocytes Absolute 0.15 #; Lymphocytes # 0.9 10*3/uL (1.4-4.0); Lymphocytes % 8.1 % (21.2-54.2); Mean Corpuscular HGB Conc 32.2 GM/DL (32-36); Mean Corpuscular Volume 94.1 FL (87-102); Mean Platelet Volume 10.2 FL (9.6-12.0); Monocytes % 8.3 % (1.7-12.7); Neutrophils % 74.1 % (38.7-73.9); Platelet Count 170 T/CUMM (130-400); Red Blood Count 3.37 MC/CUMM (3.8-5.5); Red Cell Distribution Width 13.3 % (9.3-17.3); White Blood Count 11.4 T/CUMM (4-12)
[2022-05-18] MEDS: LACTATED RINGERS 1,000 ML IV SCH ×3 (05:00→22:48)
[2022-05-18 05:08] LABS: Calcium 7.9 MG/DL (8.5-10.1); Osmolality,Calculated 300.1 MOS/KG (273-304); Potassium 3.8 MMOL/L (3.5-5.1)
[2022-05-18] MEDS: PANTOPRAZOLE 40 MG VIAL IV SCH ×2 (09:29→21:16)
[2022-05-18] MEDS: CLARITHROMYCIN 500 MG TABLET PO SCH (21:16)
[2022-05-18] MEDS: AMOXICILLIN 500 MG CAPSULE PO SCH (21:16)
[2022-05-19] MEDS: HYDROmorphone 1 MG/1 ML SYRINGE IV PRN (03:25)
[2022-05-19 04:29] LABS: Basophils # 0.1 10*3/uL (0.0-0.2); Basophils % 0.6 % (0.0-0.8); Eosinophils # 0.8 10*3/uL (0.0-0.87); Eosinophils % 6.8 % (0.00-10.9); Hematocrit 33.9 VOL% (42.0-52.0); Immature Granulocytes % 6.2 %; Immature Granulocytes Absolute 0.72 #; Lymphocytes # 0.9 10*3/uL (1.4-4.0); Lymphocytes % 7.7 % (21.2-54.2); Mean Corpuscular HGB Conc 32.4 GM/DL (32-36); Mean Corpuscular Volume 93.4 FL (87-102); Monocytes # 1.2 10*3/uL (0.11-0.8); Monocytes % 10.5 % (1.7-12.7); Neutrophils % 68.2 % (38.7-73.9); Platelet Count 201 T/CUMM (130-400); Red Blood Count 3.63 MC/CUMM (3.8-5.5); Red Cell Distribution Width 13.2 % (9.3-17.3); White Blood Count 11.7 T/CUMM (4-12)
[2022-05-19 04:47] LABS: Calcium 8.6 MG/DL (8.5-10.1); Potassium 3.5 MMOL/L (3.5-5.1)
[2022-05-19 04:59] LABS: Band Neutrophils 3 % (0-10); Eosinophils 11 % (0-10); Hypochromia Slight; Lymphocytes 5 % (20-55); Microcytosis Slight; Total Cells Counted 100
[2022-05-19] MEDS: PANTOPRAZOLE 40 MG VIAL IV SCH ×2 (08:31→20:40)
[2022-05-19] MEDS: AMOXICILLIN 500 MG CAPSULE PO SCH ×2 (08:31→20:43)
[2022-05-19] MEDS: CLARITHROMYCIN 500 MG TABLET PO SCH ×2 (08:31→20:43)
[2022-05-20 05:25] LABS: Calcium 8.2 MG/DL (8.5-10.1); Osmolality,Calculated 283.1 MOS/KG (273-304); Potassium 3.2 MMOL/L (3.5-5.1)
[2022-05-20] MEDS: POTASSIUM CHLORIDE RIDER 20 MEQ/100 ML PREMIX IV PRN ×2 (05:50→08:18)
[2022-05-20] MEDS: LACTATED RINGERS 1,000 ML IV SCH (07:16)
[2022-05-20] MEDS: PANTOPRAZOLE 40 MG VIAL IV SCH ×2 (08:19→21:29)
[2022-05-20] MEDS: CLARITHROMYCIN 500 MG TABLET PO SCH ×2 (08:19→21:29)
[2022-05-20] MEDS: AMOXICILLIN 500 MG CAPSULE PO SCH ×2 (08:20→21:28)
[2022-05-20] MEDS: HEPARIN 5,000 UNIT/1 ML VIAL SUBCUT SCH (21:29)
[2022-05-20] MEDS: HYDROmorphone 1 MG/1 ML SYRINGE IV PRN (21:41)
[2022-05-21 05:19] LABS: Basophils # 0.1 10*3/uL (0.0-0.2); Basophils % 0.6 % (0.0-0.8); Eosinophils # 0.8 10*3/uL (0.0-0.87); Eosinophils % 6.7 % (0.00-10.9); Hematocrit 33.3 VOL% (42.0-52.0); Hemoglobin 10.9 GM/DL (14.0-18.0); Immature Granulocytes % 5.7 %; Immature Granulocytes Absolute 0.63 #; Lymphocytes # 1.2 10*3/uL (1.4-4.0); Lymphocytes % 10.6 % (21.2-54.2); Mean Corpuscular HGB Conc 32.7 GM/DL (32-36); Mean Platelet Volume 10.5 FL (9.6-12.0); Monocytes # 1.2 10*3/uL (0.11-0.8); Monocytes % 10.3 % (1.7-12.7); Neutrophils % 66.1 % (38.7-73.9); Platelet Count 305 T/CUMM (130-400); Red Blood Count 3.58 MC/CUMM (3.8-5.5); White Blood Count 11.1 T/CUMM (4-12)
[2022-05-21 05:39] LABS: Calcium 8.1 MG/DL (8.5-10.1); Osmolality,Calculated 282.1 MOS/KG (273-304); Potassium 3.3 MMOL/L (3.5-5.1)
[2022-05-21 05:41] LABS: Eosinophils 8 % (0-10); Lymphocytes 4 % (20-55); Platelet Estimate Adequate; Total Cells Counted 100
[2022-05-21 05:42] LABS: Hypochromia Slight; Microcytosis Slight
[2022-05-21] MEDS: PANTOPRAZOLE 40 MG VIAL IV SCH (09:22)
[2022-05-21] MEDS: HEPARIN 5,000 UNIT/1 ML VIAL SUBCUT SCH (09:24)
[2022-05-21] MEDS: AMOXICILLIN 500 MG CAPSULE PO SCH (09:25)
[2022-05-21] MEDS: CLARITHROMYCIN 500 MG TABLET PO SCH (09:26)
[2022-05-21 10:59] VITALS: BP 120/65
[2022-05-21] MEDS ORDERED: POTASSIUM CHLORIDE 20 MEQ TABLET PO ONE (12:30)
[2022-05-21] MEDS ORDERED: HYDROmorphone 1 MG/1 ML SYRINGE IV ONE (13:45)
== END 2022-05-21 14:37 | DRG 853 ==
LOC: N.EDINP 17:22 → N.ED 17:22 → SUATTDRO 21:46 → N.TELES 22:44 → SUATTDRO 05-14 12:44 → N.ICU 05-14 13:54 → N.3E 05-20 16:20
PROVIDERS: ADMIT Family Medicine; ATTEND Internal Medicine

== ENCOUNTER 2022-06-23 13:07 | Observation (INO) ==
[2022-06-23] MEDS ORDERED: ONDANSETRON 4 MG/2 ML VIAL IV ONE (13:37)
[2022-06-23] MEDS ORDERED: SODIUM CHLORIDE 0.9% 1,000 ML IV STA (13:37)
[2022-06-23] MEDS ORDERED: MORPHINE 2 MG/1 ML SYRINGE IV ONE (13:37)
[2022-06-23 13:48] LABS: Basophils % 0.2 % (0.0-0.8); Eosinophils % 0.1 % (0.00-10.9); Hematocrit 48.7 VOL% (42.0-52.0); Hemoglobin 15.8 GM/DL (14.0-18.0); Immature Granulocytes % 0.3 %; Immature Granulocytes Absolute 0.06 #; Lymphocytes # 0.6 10*3/uL (1.4-4.0); Lymphocytes % 3.5 % (21.2-54.2); Mean Corpuscular HGB Conc 32.4 GM/DL (32-36); Mean Corpuscular Volume 89.9 FL (87-102); Mean Platelet Volume 10.4 FL (9.6-12.0); Monocytes # 0.9 10*3/uL (0.11-0.8); Monocytes % 5.2 % (1.7-12.7); Neutrophils % 90.7 % (38.7-73.9); Platelet Count 332 T/CUMM (130-400); Red Blood Count 5.42 MC/CUMM (3.8-5.5); Red Cell Distribution Width 13.5 % (9.3-17.3); White Blood Count 17.21 T/CUMM (4-12)
[2022-06-23 13:58] LABS: PT Patient Result 11.1 SECS (10.1-12.1)
[2022-06-23 14:04] LABS: Albumin 3.9 G/DL (3.4-5.0); Bilirubin,Total 0.5 MG/DL (0.20-1.00); Calcium 9.8 MG/DL (8.5-10.1); Total Protein 7.4 G/DL (6.4-8.2)
[2022-06-23] MEDS ORDERED: ACETAMINOPHEN 325 MG TABLET PO PRN (16:04)
[2022-06-23] MEDS: LACTATED RINGERS 1,000 ML IV SCH ×2 (16:21→21:14)
[2022-06-23] MEDS ORDERED: PNEUMOCOCCAL VACCINE (20 VALENT) 0.5 ML SYRINGE IM ONE (18:12)
[2022-06-23] MEDS ORDERED: LACTATED RINGERS 500 ML IV ONE (18:17)
[2022-06-23] MEDS: ONDANSETRON 4 MG/2 ML VIAL IV PRN (18:27)
[2022-06-23 19:12] LABS: Bilirubin,Urine Negative (Negative); Blood, Urine Trace mg/dL (Negative); Glucose,Urine (UA) Negative (Negative); Ketones,Urine 40 mg/dL (Negative); Nitrite,Urine Negative (Negative); Protein,Urine 100 mg/dL (Negative); Urine Appearance Clear (Clear); Urine Color Yellow (Yellow); Urine Specific Gravity 1.015 (1.001-1.035); Urine Urobilinogen 0.2 eU/dL (<2.0); Urine pH 7.5 (4.5-8.0)
[2022-06-23 19:18] LABS: Mucus,Urine Occasional /LPF (Occasional); RBC,Urine 7 /HPF (0-4); Squamous Epithelial Cell,Urine Occasional /HPF (0-10)
[2022-06-23] MEDS: PIPERACILLIN/TAZOBACTAM 3,375 MG in SODIUM CHLORIDE 0.9% 100 ML IV SCH (21:14)
[2022-06-24] MEDS: LACTATED RINGERS 1,000 ML IV SCH ×3 (04:03→18:02)
[2022-06-24] MEDS: PIPERACILLIN/TAZOBACTAM 3,375 MG in SODIUM CHLORIDE 0.9% 100 ML IV SCH ×3 (04:04→21:13)
[2022-06-24] MEDS: ONDANSETRON 4 MG/2 ML VIAL IV PRN ×4 (04:58→21:09)
[2022-06-24 07:15] LABS: Osmolality,Calculated 280.5 MOS/KG (273-304); Potassium 3.6 MMOL/L (3.5-5.1)
[2022-06-24 07:19] LABS: Albumin 3.1 G/DL (3.4-5.0); Bilirubin,Total 0.6 MG/DL (0.20-1.00); Calcium 8.9 MG/DL (8.5-10.1); Osmolality,Calculated 282.4 MOS/KG (273-304); Potassium 3.8 MMOL/L (3.5-5.1); Total Protein 5.7 G/DL (6.4-8.2)
[2022-06-24 07:20] LABS: Basophils # 0.1 10*3/uL (0.0-0.2); Basophils % 0.2 % (0.0-0.8); Eosinophils # 0.1 10*3/uL (0.0-0.87); Eosinophils % 0.4 % (0.00-10.9); Hematocrit 41.6 VOL% (42.0-52.0); Immature Granulocytes % 0.5 %; Immature Granulocytes Absolute 0.11 #; Lymphocytes # 1.1 10*3/uL (1.4-4.0); Lymphocytes % 5.3 % (21.2-54.2); Mean Corpuscular HGB Conc 32.5 GM/DL (32-36); Mean Corpuscular Volume 92.9 FL (87-102); Mean Platelet Volume 11.1 FL (9.6-12.0); Monocytes # 1.7 10*3/uL (0.11-0.8); Monocytes % 7.9 % (1.7-12.7); Neutrophils % 85.7 % (38.7-73.9); Red Blood Count 4.48 MC/CUMM (3.8-5.5); Red Cell Distribution Width 13.7 % (9.3-17.3); White Blood Count 20.99 T/CUMM (4-12)
[2022-06-24 07:21] LABS: Hemoglobin 13.5 GM/DL (14.0-18.0); Platelet Count 256 T/CUMM (130-400)
[2022-06-24 08:03] LABS: Eosinophils 1 % (0-10); Lymphocytes 9 % (20-55); Platelet Estimate Adequate; Total Cells Counted 100
[2022-06-24] MEDS ORDERED: PANTOPRAZOLE 40 MG TABLET PO SCH (09:00)
[2022-06-24] MEDS: PANTOPRAZOLE 40 MG VIAL IV SCH ×2 (11:47→21:11)
[2022-06-24 16:31] LABS: Bilirubin,Urine Negative (Negative); Blood, Urine Trace mg/dL (Negative); Glucose,Urine (UA) Negative (Negative); Ketones,Urine 15 mg/dL (Negative); Mucus,Urine Occasional /LPF (Occasional); Nitrite,Urine Negative (Negative); Protein,Urine Negative (Negative); Squamous Epithelial Cell,Urine Occasional /HPF (0-10); Urine Appearance Clear (Clear); Urine Color Yellow (Yellow); Urine Specific Gravity 1.025 (1.001-1.035); Urine Urobilinogen 0.2 eU/dL (<2.0); Urine pH 6.5 (4.5-8.0)
[2022-06-25] MEDS: ONDANSETRON 4 MG/2 ML VIAL IV PRN (03:03)
[2022-06-25] MEDS: LACTATED RINGERS 1,000 ML IV SCH ×2 (03:08→13:31)
[2022-06-25] MEDS: PIPERACILLIN/TAZOBACTAM 3,375 MG in SODIUM CHLORIDE 0.9% 100 ML IV SCH ×2 (05:23→13:30)
[2022-06-25 06:27] LABS: Basophils # 0.1 10*3/uL (0.0-0.2); Basophils % 0.5 % (0.0-0.8); Eosinophils # 0.4 10*3/uL (0.0-0.87); Eosinophils % 2.8 % (0.00-10.9); Hematocrit 33.4 VOL% (42.0-52.0); Hemoglobin 10.8 GM/DL (14.0-18.0); Immature Granulocytes % 0.4 %; Immature Granulocytes Absolute 0.06 #; Lymphocytes # 1.4 10*3/uL (1.4-4.0); Lymphocytes % 10.3 % (21.2-54.2); Mean Corpuscular HGB Conc 32.3 GM/DL (32-36); Mean Corpuscular Volume 93.6 FL (87-102); Mean Platelet Volume 10.8 FL (9.6-12.0); Monocytes % 7.6 % (1.7-12.7); Neutrophils % 78.4 % (38.7-73.9); Platelet Count 205 T/CUMM (130-400); Red Blood Count 3.57 MC/CUMM (3.8-5.5); Red Cell Distribution Width 13.5 % (9.3-17.3); White Blood Count 13.35 T/CUMM (4-12)
[2022-06-25 06:55] LABS: Albumin 2.4 G/DL (3.4-5.0); Bilirubin,Total 0.4 MG/DL (0.20-1.00); Calcium 8.2 MG/DL (8.5-10.1); Osmolality,Calculated 281.3 MOS/KG (273-304); Potassium 3.7 MMOL/L (3.5-5.1); Total Protein 5.3 G/DL (6.4-8.2)
[2022-06-25] MEDS ORDERED: BENZOCAINE/MENTHOL LOZENGE 18/BOX PO PRN (09:00)
[2022-06-25] MEDS ORDERED: PHENOL 1.4% THROAT SPRAY 177 ML BOTTLE PO PRN (09:25)
[2022-06-25] MEDS: PANTOPRAZOLE 40 MG VIAL IV SCH (10:06)
[2022-06-25 12:13] VITALS: BP 124/55
== END 2022-06-25 16:45 | disposition home or self-care (01) ==
LOC: N.ED 13:07 → N.EDINP 13:07 → N.2E 17:22
PROVIDERS: ADMIT Student in an Organized Health Care Education/Training Program; ATTEND Student in an Organized Health Care Education/Training Program